=== PATIENT | male | born 1945 | race Caucasian/White ===

== ENCOUNTER → 2017-06-01 13:36 | Outpatient (CLI) | payer OTHER, MEDICARE, SELFPAY ==
--- NOTE | 2017-06-01 13:40 | US_ITS ---
STUDY: THYROID ULTRASOUND REASON FOR EXAM: Male, 72 years old. Thyromegaly TECHNIQUE: Ultrasound evaluation of the thyroid was performed with real-time and static stout-scale imaging. COMPARISON: None. FINDINGS: RIGHT LOBE: The right lobe of the thyroid gland measures 3.3 x 1.3 x 1.6 cm. There is a homogeneous echotexture. There are no demonstrated solid, cystic or complex lesions. LEFT LOBE: The left lobe of the thyroid gland measures 3.7 x 1.4 x 1.5 cm. There is a homogeneous echotexture. There are no demonstrated solid, cystic or complex lesions. ISTHMUS: The isthmus measures 2 mm . The regional lymph nodes are normal. US/Thyroid IMPRESSION: Normal ultrasound examination of the thyroid. Electronically Signed: Asa Augustin MD at 9:44 EDT , Service support ,
== END ==
PROVIDERS: Family Provider Internal Medicine; PCP Internal Medicine; Visit Provider Internal Medicine
DX: E01.0 Iodine-deficiency related diffuse (endemic) goiter (principal)
CPT/HCPCS: 76536

== ENCOUNTER → 2018-07-12 08:12 | Outpatient (CLI) | payer OTHER, MEDICARE, SELFPAY ==
[2018-06-21 09:24] VITALS: BMI 27.5
--- NOTE | 2018-07-12 08:17 | RAD_ITS ---
Fluoroscopic guided esophagram INDICATION: Dysphagia TECHNIQUE: Fluoroscopic guided cine esophagram was performed in usual fashion. FINDINGS: The images submitted for interpretation demonstrating normal peristaltic activity. There appear to be a very small transient hiatal hernia. No obstructing or constricting lesions are seen. There are no mucosal filling defects noted within the esophagus. For more complete information recommend correlation with procedural notes RAD/Esophagus Only IMPRESSION: Small transient hiatal hernia otherwise unremarkable study Electronically Signed: Kwan Mccann MD at 20:52 EDT , Service support ,
== END ==
PROVIDERS: Family Provider Internal Medicine; PCP Internal Medicine; Referring Provider Internal Medicine; Visit Provider Internal Medicine
DX: R13.10 Dysphagia, unspecified (principal)
CPT/HCPCS: 74220

== ENCOUNTER 2018-09-27 05:17 | Day surgery (SDC) | payer OTHER, MEDICARE, SELFPAY ==
[2018-09-08 09:09] VITALS: BMI 26.0
--- NOTE | 2018-09-08 09:50 | HP_ITS ---
Intake Vital Signs 09/08/18 Height 6 ft 09/08/18 Weight: 192 lb 09/08/18 Body Mass Index (BMI) 26.0 09/08/18 Blood Pressure 148/83 H 09/08/18 Blood Pressure Location Rt brachial 09/08/18 Blood Pressure Position Sitting 09/08/18 Respiratory Rate 14 09/08/18 Pulse Rate 71 09/08/18 Pulse Source Monitor 09/08/18 Temperature 98.2 F 09/08/18 Pulse Ox 99 09/08/18 Oxygen Delivery Method room air 09/08/18 Body Mass Index (BMI) 27.5 08/16/18 Body Mass Index (BMI) 27.5 Intake Visit Reasons: Hiatal Hernia Chief Complaint: Follow-up visit. Director Of Academic Support Required: No Is patient in pain?: No Allergies Penicillins Adverse Reaction (Verified 09/08/18 09:10) Rash Medications Aspirin [Aspirin EC] 81 mg PO DAILY 08/21/16 [History Confirmed 09/08/18] Atenolol [Tenormin (beta Ten)] 25 mg PO DAILY 08/21/16 [History Confirmed 09/08/18] Atorvastatin Calcium [Lipitor] 40 mg PO QHS 08/21/16 [History Confirmed 09/08/18] Cholecalciferol (Vitamin D3) [Vitamin D3] 5,000 unit PO DAILY 08/21/16 [History Confirmed 09/08/18] Clopidogrel Bisulfate [Plavix] 75 mg PO DAILY 08/21/16 [History Confirmed 09/08/18] [place]-3 Fatty Acids/Fish Oil [Fish Oil 1,000 mg Capsule] 1 ea PO DAILY 08/21/16 [History Confirmed 09/08/18] Ramipril [Altace] 5 mg PO DAILY 08/21/16 [History Confirmed 09/08/18] levothyroxine 50 mcg capsule 50 mcg PO QDAY cap 06/21/17 [History Confirmed 09/08/18] ciprofloxacin 500 mg tablet 500 mg PO DAILY tab 09/08/18 [History Confirmed 09/08/18] [facility] Medical History (Updated 09/08/18 @ 09:47 by Wilmer Gary MD) Dysphagia (Acute) Atherosclerotic heart disease of [place] coronary artery without angina pectoris (Chronic) Ischemic cardiomyopathy (Chronic) Hypertension (Chronic) Hyperlipidemia (Acute) Surgical History (Updated 09/08/18 @ 09:07 by Alexandra Duarte) Hx of colonoscopy (Acute) History of rectal or anal cancer (Acute) History of herniorrhaphy (Resolved) Presence of stent in coronary artery (Chronic ~01/31/02) Postsurgical percutaneous transluminal coronary angioplasty (PTCA) status (Chronic ~01/31/02) Family History Father CAD (coronary artery disease) Myocardial infarction History of implantable cardioverter-defibrillator (ICD) placement History of permanent cardiac pacemaker placement Mother CAD (coronary artery disease) Brother CAD (coronary artery disease) Myocardial infarction Social History (Updated 09/08/18 @ 09:50 by Wilmer Gary MD) Smoking Status: Never smoker alcohol intake: current details: occasionally substance use type: does not use HPI HPI HPI: ALVAREZ GUTIERREZ, is a 73 M who presents to the office today for HPI HPI Surgical H&P: Yes HPI: ALVAREZ GUTIERREZ, is a 73 M who presents to the office today for surgical consultation regarding esophageal dysphasia. The patient claims that when eating a hamburger sometimes pork chop the food will intermittently hang up. He has never had an upper endoscopy. In 2003 he did have a colon resection for colon cancer performed at the [facility]. His most recent colonoscopy was May 2015 with recommendations for follow-up colonoscopy at 5 years. The patient requests that I assist him with that process. The patient did have a esophagram performed at the [facility] on July 12, 2018. That suggested a transient hiatal hernia and transient reflux. No mass lesions were noted. The patient is not remarkable for taking any acid reducing medications. August 2016 I assisted him with a laparoscopic repair of incarcerated right lower quadrant incisional hernia with extensive lysis of adhesions. The patient had an extensive postoperative recovery however currently he remains quite well. He is appreciative of my efforts in that regard. The patient is being referred by Dr. Vera Moreno for surgical consultation regarding dysphasia and a written copy of my surgical consult recommendations will return to her. Exam Const General: cooperative, healthy appearing, comfortable Nutritional Appearance: average body habitus [facility] Other: The patient is just completing 5-fluorouracil treatment diffusely of actinic keratoses of his face. Diffuse inflammatory erythema is noted Resp Effort & Inspection: normal respiratory effort Auscultation: clear to auscultation bilaterally Cardio Rate: regular rate Rhythm: regular rhythm GI Palpation: soft, no hepatosplenomegaly Auscultation: normal bowel sounds Neuro Cranial Nerves: CN's II-XI intact bilaterally Extrem General: no calf tenderness bilaterally Psych Affect: normal affect Assessment & Plan Problems 1. Esophageal dysphagia R13.10 Plan I have offered the patient a esophagogastroduodenoscopy with possible biopsy. Is aware that if an acute pathology like a Schatzki ring is identified that I would consider hydrostatic dilatation. I have discussed with him technique, benefit, risks, alternatives. He has had an opportunity to ask and have questions answered. Careful inspection for any type of process that would be causing solid food to have delayed progression would be noted. Appropriate biopsies will be pursued. As noted the patient is not currently on reflux medication. We will schedule and proceed at his discretion. I appreciate the ongoing option of assisting with his surgical care. The patient may very well have silent reflux disease. CC: Dr. Vera Gary M.D., F.A.C.S. Orders Orders: EGD Today R13.10 Coding Level of Care Code 40330 Diagnoses Esophageal dysphagia R13.10 ??Dysphagia type: esophageal phase 09/08/18 0950 <Electronically signed by Wilmer alexis MD> Date _ Wilmer Gary MD I have re-examined the patient. There are no clinical changes since date of exam.
[2018-09-27] VITALS (7 sets, daily range): BP systolic 117–173; BP diastolic 47–83; PULSE 69–75; RESP 14–16; TEMP 36.2–36.9; O2SAT 97–100; BMI 27.6
--- NOTE | 2018-09-27 06:30 | IMM_PTH ---
PATIENT: ALVAREZ GUTIERREZ LOC: EN U#:[id number] AGE/SX: 73/M ROOM: RE09/27/[address]: Dr. Wilmer Gary MD : 1945 BED: DIS: 09/27/2018 SPEC #: [id number] RECD: 09/27/18 11:27 STATUS: JOVANI RETrinh #: [id number] RADHA: 09/27/18 06:[address]: Wilmer Gary DEPT: IMMUNOHISTOCHEMISTRY RECD BY: Patti Bennett ENTERED: 09/27/18 11:27 SP TYPE: IMMUNO OTHR DR: Dr. Vera Moreno DO Tissues: A - Stomach, NOS Procedures: H Pylori (initial) PHYSICIAN & INSTITUTION [place] [id number] SPECIMEN INFORMATION: Tissue Source: A - Antrum biopsy Clinical Info: Dysphagia Specimen Number: [id number] CPT code: 27154 METHODOLOGY: Deparaffinized sections of prefer/formalin-fixed tissue or PAP/DQ stained slides are incubated with monoclonal/polyclonal antibodies/oligonucleotide probes. Localization is made via biotin free immunoperoxidase method. Appropriate controls are performed and reacted as expected. Results on target cell population are indicated in the following table: RESULTS: ANTIBODY / CLONE RESULT Block A H Pylori (polyclonal) negative These tests were developed and their performance characteristics determined by [facility]. They may not have been cleared or approved by the U.S. Food and Drug Administration. The FDA has determined that such clearance or approval is not necessary. INTERPRETATION: A. Antrum biopsy: Negative for Helicobacter pylori organisms. DIEGO:joshua 09/28/18
--- NOTE | 2018-09-27 06:30 | EGD_PTH ---
PATIENT: ALVAREZ GUTIERREZ LOC: EN U#:[id number] AGE/SX: 73/M ROOM: RE09/27/[address]: Dr. Wilmer Gary MD : 1945 BED: DIS: 09/27/2018 SPEC #: [id number] RECD: 09/27/18 09:07 STATUS: JOVANI REI #: [id number] RADHA: 09/27/18 06:[address]: Wilmer Gary DEPT: SURGICAL PATHOLOGY RECD BY: Imani Palma ENTERED: 09/27/18 09:52 SP TYPE: EGD BIOPSY OTHR DR: Dr. Vera Moreno DO Tissues: A - Gastric mucous membrane B - Esophagus, NOS Procedures: Special Stain Group II Surgery Specimen Level IV Alcian Blue/PAS (control) HEADER OPERATION: EGD MOD, poss dilation PRE-OP DIAGNOSIS: Dysphagia TISSUE SUBMITTED: A. Antrum biopsy for histo and H. pylori, BDarlene Robertson ring biopsy MICROSCOPIC DIAGNOSIS A. Antrum biopsy: Mild gastritis. See microscopic description and comment. Colten torres, biopsy: Fragments of gastroesophageal mucosa with mild chronic inflammation. Intestinal metaplasia (goblet cell metaplasia) is not identified. See comment. SJ:rg 09/28/18 COMMENT A. The results of immunohistochemistry for Helicobacter pylori will be reported separately ([id number]). B. Alcian blue/PAS stain with matched control is used in the evaluation of the specimen. The specimen predominantly consists of squamous epithelium. MICROSCOPIC DESCRIPTION Slides are reviewed. A. The specimen shows fragments of gastric mucosa with chronic inflammatory cell infiltrates in the lamina propria consisting of lymphocytes and plasma cells, consistent with mild chronic gastritis. GROSS DESCRIPTION A - Received in fixative is one container labeled with the patient's name and designated antrum biopsy. The specimen consists of one irregular fragment of light landrum soft tissue that measures 0.4 x 0.3 x 0.1 cm. The specimen is totally submitted in one cassette. B - Received in fixative is one container labeled with the patient's name and designated Bricetzki ring biopsy. The specimen consists of multiple irregular fragments of light landrum soft tissue that in aggregate measure 0.5 x 0.5 x 0.1 cm. The specimen is totally submitted in one cassette. / DIEGO:joshua 09/27/18 TC: CPT: 17327 x2, 05337
--- NOTE | 2018-09-27 06:58 | OP.ENDO_ITS ---
09/27/2018 Vera Moreno Re : Upper GI endoscopy procedure for Raul Moreno This procedure was performed on Thursday, September 27, 2018. My impressions and recommendations are as follows: Impressions : - Z-line irregular, 38 cm from the incisors. Biopsied. - Medium-sized hiatal hernia. - Benign-appearing esophageal stenosis. Dilated. - Erythematous mucosa in the antrum. Biopsied. - Normal examined duodenum. Recommendations : - Discharge patient to home. - Resume previous diet. - Continue present medications. - Use Prilosec (omeprazole) 40 mg PO daily. Plan omeprazole for 60 days then change to ranitidine or famotidine - Telephone my office for pathology results in 1 week. My findings are described in the full procedure note, which is enclosed. If I can be of further assistance, please feel free to contact me at Doctor phone number(s): Work: . Sincerely, Wilmer Gary MD 09/27/2018 6:58:22 AM This report has been signed electronically.
== END 2018-09-27 08:12 | disposition home or self-care (01) ==
LOC: EN 05:17 → AC 05:18
PROVIDERS: Family Provider Internal Medicine; PCP Internal Medicine; Referring Provider Surgery; Visit Provider Surgery
PROC: (CPT 43239; principal; 2018-09-27 06:25)
DX: K29.70 Gastritis, unspecified, without bleeding (principal); K22.2 Esophageal obstruction; K44.9 Diaphragmatic hernia without obstruction or gangrene; I25.10 Atherosclerotic heart disease of native coronary artery without angina pectoris; I10 Essential (primary) hypertension; E78.5 Hyperlipidemia, unspecified; I25.5 Ischemic cardiomyopathy; Z79.82 Long term (current) use of aspirin; Z79.899 Other long term (current) drug therapy
CPT/HCPCS: 43239; 43249; 88305; 88313; 88342; 99152; 99153; J7120

== ENCOUNTER → 2019-10-11 10:30 | Outpatient (CLI) | payer OTHER, MEDICARE, SELFPAY ==
[2019-06-19 13:02] VITALS: BMI 27.5
--- NOTE | 2019-10-11 10:35 | MRI_ITS ---
STUDY: MRI BRAIN WITH AND WITHOUT CONTRAST REASON FOR EXAM: Male, 74 years old. CONFUSION, memory loss TECHNIQUE: Standardized multiplanar fat and water weighted pulse sequences were obtained. 18 mL of IV Dotarem was administered for the contrast portion of the examination. COMPARISON: None. FINDINGS: No restricted diffusion to suspect acute or subacute ischemic infarct. No focal signal abnormalities throughout the brain parenchyma in all pulse sequences. Normal size of the ventricles and extra-axial spaces for the patient''s age. Normal white matter tracts of the supratentorial brain. Normal bilateral basal ganglia. Normal thalami. There is no extra-axial fluid accumulation. Normal flow voids within the major intracranial circulation suggesting patency by spin echo criteria. Normal venous enhancement. There is no enhancing intra-axial or extra-axial abnormality. Normal sella turcica, pituitary gland, infundibular stalk, optic chiasm and hypothalamus. Normal tectal plate and pineal gland. Normal midbrain, marquis and medulla. Normal cerebellum. Normal basal cisterns. Normal bilateral temporal bones. Normal bilateral internal auditory canals. No demonstrated orbital abnormality, within the constraints of a routine brain study. Normal visualized paranasal sinuses. Normal calvarium and skull base. Normal visualized soft tissue structures. Normal visualized upper cervical spine. MRI/Brain W/WO Contrast IMPRESSION: Normal unenhanced and enhanced MRI of the brain. Electronically Signed: Thiago Bardales MD at 14:08 EDT , Service support ,
[2019-10-11 12:26] LABS: CREATININE FINGERSTICK 0.9 mg/dL (0.70-1.30); EGFR FINGERSTICK > 60.0000 mL/min (>60)
== END ==
PROVIDERS: PCP Internal Medicine; Referring Provider Internal Medicine; Visit Provider Internal Medicine
DX: R41.0 Disorientation, unspecified (principal)
CPT/HCPCS: 70553; A9575

== ENCOUNTER → 2020-02-02 12:40 | Outpatient (CLI) | payer OTHER, MEDICARE, SELFPAY ==
[2020-01-23 11:37] VITALS: BMI 28.0
--- NOTE | 2020-02-02 12:47 | ECHOD_ITS ---
Reason For Study: CAD/ASHD Procedure This was a 2D Doppler, Color Flow transthoracic echocardiogram. Exam performed in department. Left Ventricle Normal LV size. Left ventricular systolic function is normal. The estimated ejection fraction is 55 %. Stage 1 diastolic dysfunction. No regional wall motion abnormalities noted. Right Ventricle Normal RV size. Normal systolic function. Atria Normal left atrium. Normal right atrium. Mitral Valve Normal mitral valve. Mild (1+) eccentric mitral valve insufficiency. Tricuspid Valve Normal tricuspid valve. Mild (1+) tricuspid valve insufficiency. Pulmonary artery systolic pressure is 28 mmHg. Aortic Valve Trisinus/trileaflet aortic valve. Trivial aortic valve insufficiency. Pulmonic Valve Normal pulmonic valve. Great Vessels Normal aortic root. The pulmonary artery is normal size. Normal inferior vena cava. Pericardium/Pleural No pericardial effusion. MMode/2D Measurements & Calculations LVIDd: 5.1 cm IVSd: 0.87 cm Ao root diam: 3.2 cm LVIDs: 3.6 cm LVPWd: 0.94 cm RVDd: 3.5 cm FS: 28.7 % LAV(MOD-bp): 60.1 ml LVAd ap4: 36.5 cm2 SV(MOD-sp4): 69.1 ml LAV(MOD-bp) Indexed: 27.8 ml/m2 EDV(MOD-sp4): 127.6 ml LAV(MOD-sp2): 63.8 ml EDV(sp4-el): 127.5 ml LAV(MOD-sp4): 47.8 ml LVAs ap4: 22.8 cm2 ESV(MOD-sp4): 58.6 ml ESV(sp4-el): 58.7 ml EF(MOD-sp4): 54.1 % EF(sp4-el): 53.9 % SV(sp4-el): 68.7 ml LA A4 area: 19.0 cm2 LA dimension(2D): 4.6 cm RA A4 area: 19.0 cm2 Time Measurements MV dec time: 0.25 sec Doppler Measurements & Calculations MV E max davidson: 73.8 cm/sec Lat Peak E' Davidson: 11.2 cm/sec Med Peak E' Davidson: 7.3 cm/sec MV A max davidson: 85.9 cm/sec E/E' lat: 6.6 E/E' med: 10.1 MV E/A: 0.86 Ao V2 max: 122.9 cm/sec AI max davidson: 379.8 cm/sec LV V1 max: 82.2 cm/sec Ao max P.0 mmHg AI max P.7 mmHg LV V1 max P.7 mmHg AI dec slope: 162.4 cm/sec2 AI P1/2t: 685.2 msec PA V2 max: 119.6 cm/sec PI end-d davidson: 73.7 cm/sec TR max davidson: 242.2 cm/sec TR max P.5 mmHg Interpretation Summary Normal LV size. Left ventricular systolic function is normal. The estimated ejection fraction is 55 %. Stage 1 diastolic dysfunction. Pulmonary artery systolic pressure is 28 mmHg. Ordering Physician: Wilfred Coronel Referring Physician: KRYSTA TYLER Performed By: Deborah Rogel RDCS
== END ==
PROVIDERS: PCP Internal Medicine; Referring Provider Internal Medicine Cardiovascular Disease; Visit Provider Internal Medicine Cardiovascular Disease
DX: I25.10 Atherosclerotic heart disease of native coronary artery without angina pectoris (principal); I25.5 Ischemic cardiomyopathy; Z95.5 Presence of coronary angioplasty implant and graft
CPT/HCPCS: 93306

== ENCOUNTER 2020-06-11 07:04 | Day surgery (SDC) | payer OTHER, MEDICARE, SELFPAY ==
[2020-05-31 09:27] VITALS: BMI 28.3
--- NOTE | 2020-06-11 07:22 | HP.PCM_ITS ---
Problem List (1) Esophageal dysphagia Status: Acute (2) History of rectal or anal cancer Status: Chronic History and Physical Date of Admission: 06/11/20 Intake Visit Reasons: C-Scope Chief Complaint: Follow-up visit. Allergies atorvastatin Adverse Reaction (Verified 05/31/20 09:28) myalgias Penicillins Adverse Reaction (Verified 05/31/20 09:28) Rash Medications Aspirin [Aspirin EC] 81 mg PO DAILY 08/21/16 [History Confirmed 05/31/20] Atenolol [Tenormin (beta [place])] 25 mg PO DAILY 08/21/16 [History Confirmed 05/31/20] Clopidogrel Bisulfate [Plavix] 75 mg PO DAILY 08/21/16 [History Confirmed 05/31/20] [place]-3 Fatty Acids/Fish Oil [Fish Oil 1,000 mg Capsule] 1 ea PO DAILY 08/21/16 [History Confirmed 05/31/20] Ramipril [Altace] 5 mg PO DAILY 08/21/16 [History Confirmed 05/31/20] levothyroxine 50 mcg capsule 50 mcg PO QDAY cap 06/21/17 [History Confirmed 05/31/20] cholecalciferol (vitamin D3) 125 mcg (5,000 unit) capsule 5,000 unit PO .QOD cap 06/19/19 [History Confirmed 05/31/20] daily defense TOPICAL 06/19/19 [History Confirmed 05/31/20] folic acid 0.8 mg capsule 0.8 mg PO DAILY 01/23/20 [History Confirmed 05/31/20] omeprazole 40 mg capsule,delayed release 40 mg PO DAILY cap 01/23/20 [History Confirmed 05/31/20] rosuvastatin 5 mg tablet 5 mg PO DAILY tab 01/23/20 [History Confirmed 05/31/20] [facility] Medical History (Updated 05/31/20 @ 09:[address] Wilmer Gary MD) Esophageal dysphagia (Acute) Acid reflux (Chronic) Thyroid disease (Acute) Dysphagia (Inactive) Atherosclerotic heart disease of [place] coronary artery without angina pectoris (Chronic) Ischemic cardiomyopathy (Chronic) Essential (primary) hypertension (Chronic) Hyperlipidemia (Chronic) History of rectal cancer (Resolved) Surgical History (Updated 05/31/20 @ 09:35 by Alexandra Duarte) History of esophageal dilatation (Acute) History of esophagogastroduodenoscopy (EGD) (Acute) Hx of ventral hernia repair (Acute) History of herniorrhaphy (Resolved) Hx of colonoscopy (Resolved) History of colon resection (Resolved) History of coronary artery stent placement (Resolved 01/21/02) History of rectal or anal cancer (Chronic) Family History Father CAD (coronary artery disease) Myocardial infarction History of implantable cardioverter-defibrillator (ICD) placement History of permanent cardiac pacemaker placement Mother CAD (coronary artery disease) Brother CAD (coronary artery disease) Myocardial infarction Cancer Social History (Updated 05/31/20 @ 09:[address] Wilmer Gary MD) Smoking Status: Never smoker alcohol intake: current alcohol intake frequency: holidays/special occasions only details: occasionally substance use type: does not use caffeine: Yes what type of physical activity do you participate in: walking frequency: 3-4 times per week HPI HPI HPI: ALVAREZ GUTIERREZ, is a 75 M who presents to the office today for surgical consultation regarding 2 separate issues. He is having recurrent esophageal dysphagia. Solid foods particularly red meat gives him significant problems where it is difficult to swallow. As noted below September 27 had an upper endoscopy form demonstrating a medium size hiatal hernia with a Schatzki ring. I did a oxvltxm-[id number] balloon dilatation to 20 mm. He states that he was significantly improved subsequent to that. The patient also has had a history of rectal cancer. He remotely at a tertiary center had a low anterior resection with diverting ileostomy and takedown of the ileostomy. His most recent colonoscopy was May 26. He has no specific lower GI complaints. He claims that his stool has always been softer. He denies bright red blood per rectum or melena. No abdominal pain. Finally as noted below August 2016 I assisted him with a right lower quadrant incarcerated ventral incisional hernia related to his previous ileostomy site. He has no particular complaints about that currently. Upper scope of September 27 2018 Impressions : - Z-line irregular, 38 cm from the incisors. Biopsied. - Medium-sized hiatal hernia. - Benign-appearing esophageal stenosis. Dilated. - Erythematous mucosa in the antrum. Biopsied. - Normal examined duodenum August 24, 2016 PROCEDURES: Right lower quadrant incarcerated ventral incisional herniorrhaphy with extensive 1-hour lysis of adhesions and laparoscopic mesh fixation. Past surgical history includes the low anterior resection for proximal rectal cancer, loop diverting ileostomy with subsequent takedown ileostomy. His most recent colonoscopy was May 27, 2015, per Dr. Cardenas and it was not remarkable. The patient is referred by his primary care physician Dr. Vera Moreno and a written copy my surgical consult recommendations will be returned to her HPI HPI HPI: ALVAREZ GUTIERREZ, is a 75 M who presents to the office today for Exam Const General: cooperative, healthy appearing, comfortable, no acute distress Orientation: alert, awake HENIN Head: normal to inspection Eyes General: appearance normal, both eyes and all related structures Chest Chest palpation & inspection: normal inspection of the chest Resp Effort & Inspection: normal respiratory effort Auscultation: clear to auscultation bilaterally Cardio Rate: regular rate Rhythm: regular rhythm GI Palpation: soft, no hepatosplenomegaly Auscultation: normal bowel sounds Musc Cervical Spine: normal cervical lordosis Neuro Cognition: normal cognition Extrem General: no calf tenderness Psych Affect: normal affect Assessment & Plan Problems 1. Esophageal dysphagia R13.10 2. History of rectal or anal cancer Z85.048 Plan 75-year-old gentleman. His recurrent esophageal dysphagia symptoms. Red meat particular gives him trouble. I recommend to him a esophagogastroduodenoscopy with intended esophageal dilatation if a recurrent Schatzki ring is identified. Previously he was dilated to 20 mm. The patient also has a remote history of rectal cancer. His most recent colonoscopy as noted was May 2015. Fortunately he is currently asymptomatic. We will have him hold his fish oil for 1 week. Hold his aspirin for 1 week. Hold his clopidogrel for 5 days. He has had a history of coronary stenting in 2001. He has not had any current symptoms. Because of the anticipated esophageal dilatation I would like to have his Plavix held. He has had an opportunity to ask and have questions answered. I appreciate the ongoing opportunity of assisting with his surgical care. We will schedule and proceed as noted. Copy: Dr. Vera Gary M.D., F.A.C.S. Coding Level of Care Code 63015 Diagnoses Esophageal dysphagia R13.10 History of rectal or anal cancer Z85.048 I have re-examined the patient. There are no clinical changes since date of exam. Procedure Criteria Procedure Type: Elective COVID Risk Discussion: The surgeon/proceduralist and patient have discussed in detail the risk of exposure to and/or potential harm posed by the COVID-19 virus with having a surgery/procedure at this time versus the risk of delaying the surge ry/procedure. It is not possible to know either the risk of delaying the surgery or procedure or chance of getting an infection with perfect accuracy, but a joint decision was made between the patient and the surgeon/proceduralist to proceed at this time with the scheduled surgery/procedure as indicated on the consent form.
[2020-06-11 07:30] VITALS: BP 139/75; PULSE 75; RESP 16; TEMP 36.9; O2SAT 100
[2020-06-11] MEDS: Lactated Ringers 1,000 ML 100 ML IV (07:43)
--- NOTE | 2020-06-11 08:15 | EGD_PTH ---
PATIENT: ALVAREZ GUTIERREZ LOC: EN U#:[id number] AGE/SX: 75/M ROOM: RE06/11/[address]: Dr. Wilmer Gary MD : 1945 BED: DIS: 06/11/2020 SPEC #: [id number] RECD: 06/11/20 11:20 STATUS: JOVANI REI #: [id number] RADHA: 06/11/20 08:[address]: Wilmer Gary DEPT: SURGICAL PATHOLOGY RECD BY: Sabine Hoskins ENTERED: 06/11/20 12:24 SP TYPE: EGD BIOPSY OTHR DR: Dr. Vera Moreno DO Tissues: A - Duodenum, NOS B - Gastric mucous membrane C - Gastric mucous membrane D - Ascending colon E - Transverse colon Procedures: Special Stain Group II Surgery Specimen Level IV Alcian Blue/PAS (control) HEADER OPERATION: Colonoscopy/EGD with dilatation PRE-OP DIAGNOSIS: Esophageal dysphagia, history of rectal or anal cancer TISSUE SUBMITTED: A - Duodenal biopsy, B - Antral biopsy, H. pylori and path, C - GE junction biopsy, D - Ascending colon polyp, E - Proximal transverse colon polyp MICROSCOPIC DIAGNOSIS A. Duodenal biopsy: A fragment of duodenal mucosa with mild nonspecific chronic inflammation. B. Antral biopsy: Mild gastritis. See microscopic description and comment. C. GE junction, biopsy: Fragments of gastroesophageal mucosa with mild chronic inflammation. Intestinal metaplasia (goblet cell metaplasia) not identified. See comment. D. Ascending colon polyp, biopsy: Tubular adenoma. E. Proximal transverse colon polyp, biopsy: Scant minute fragments of colonic epithelium and fragments of fecal material, no pathologic diagnosis. SJ:joshua 06/12/2020 COMMENT B. The results of immunohistochemistry for Helicobacter pylori will be reported separately ([id number]). C. Alcian blue/PAS stain with matched control is used in the evaluation of the specimen. MICROSCOPIC DESCRIPTION Slides are reviewed. A. The specimen shows fragments of gastric mucosa with chronic inflammatory cell infiltrates in the lamina propria consisting of lymphocytes and plasma cells, consistent with mild chronic gastritis. GROSS DESCRIPTION A - Received in fixative is one container labeled with the patient's name and designated duodenal biopsy. The specimen consists of one irregular fragment of light landrum soft tissue that measures 0.5 x 0.2 x 0.1 cm. The specimen is totally submitted in one cassette. B - Received in fixative is one container labeled with the patient's name and designated antral biopsy. The specimen consists of one irregular fragment of light landrum soft tissue that measures 0.7 x 0.3 x 0.1 cm. The specimen is totally submitted in one cassette. C - Received in fixative is one container labeled with the patient's name and designated GE junction biopsy. The specimen consists of two irregular fragments of light landrum soft tissue that in aggregate measure 0.4 x 0.3 x 0.1 cm. The specimen is totally submitted in one cassette. D - Received in fixative is one container labeled with the patient's name and designated ascending colon polyp. The specimen consists of one irregular fragment of light landrum soft tissue that measures 0.3 x 0.3 x 0.1 cm. The specimen is totally submitted in one cassette. E - Received in fixative is one container labeled with the patient's name and designated proximal transverse colon polyp. The specimen consists of a minute fragment of landrum soft tissue measuring 0.1 cm in greatest dimension. The specimen is totally submitted in one cassette. / SJ:joshua 06/11/20 TC:1 CPT: 80960 x5, 06490
--- NOTE | 2020-06-11 08:15 | IMM_PTH ---
PATIENT: ALVAREZ GUTIERREZ LOC: EN U#:[id number] AGE/SX: 75/M ROOM: RE06/11/[address]: Dr. Wilmer Gary MD : 1945 BED: DIS: 06/11/2020 SPEC #: [id number] RECD: 06/11/20 12:01 STATUS: JOVANI REQ #: [id number] RADHA: 06/11/20 08:[address]: Wilmer Gary DEPT: IMMUNOHISTOCHEMISTRY RECD BY: Patti Bennett ENTERED: 06/11/20 12:02 SP TYPE: IMMUNO OTHR DR: Dr. Vera Moreno DO Tissues: B - Stomach, NOS Procedures: H Pylori (initial) PHYSICIAN & INSTITUTION [place] [id number] SPECIMEN INFORMATION: Tissue Source: B - Antral biopsy Clinical Info: Esophageal dysphagia, history of rectal or anal cancer Specimen Number: [id number] CPT code: 07697 METHODOLOGY: Deparaffinized sections of prefer/formalin-fixed tissue or PAP/DQ stained slides are incubated with monoclonal/polyclonal antibodies/oligonucleotide probes. Localization is made via biotin free immunoperoxidase method. Appropriate controls are performed and reacted as expected. Results on target cell population are indicated in the following table: RESULTS: ANTIBODY / CLONE RESULT Block B H Pylori (polyclonal) negative These tests were developed and their performance characteristics determined by [facility]. They may not have been cleared or approved by the U.S. Food and Drug Administration. The FDA has determined that such clearance or approval is not necessary. INTERPRETATION: B. Antral biopsy: Negative for Helicobacter pylori organisms. SJ:joshua 06/12/2020
[2020-06-11 09:55] VITALS: BP 106/64; BP 139/75; PULSE 82; RESP 16; TEMP 36.2; O2SAT 98
--- NOTE | 2020-06-11 09:56 | OP.CCLET_ITS ---
06/11/2020 Vera Moreno Re : Upper GI endoscopy procedure for Raul Moreno This procedure was performed on Thursday, June 11, 2020. My impressions and recommendations are as follows: Impressions : - LA Grade A reflux esophagitis. Biopsied. - Medium-sized hiatal hernia. - Moderate Schatzki ring. Dilated. - Erythematous mucosa in the antrum. Biopsied. - Erythematous duodenopathy. Biopsied. Recommendations : - Discharge patient to home. - Resume previous diet. - Continue present medications. - Telephone my office for pathology results in 1 week. My findings are described in the full procedure note, which is enclosed. If I can be of further assistance, please feel free to contact me at Doctor phone number(s): Work: . Sincerely, Wilmer Gary MD 06/11/2020 9:56:06 AM This report has been signed electronically.
--- NOTE | 2020-06-11 09:56 | OP.EGD_ITS ---
Patient Name: Raul Tran Procedure Date: 06/11/2020 9:05 AM Date of : 1945 Age: 75 Procedure: Upper GI endoscopy Indications: Dysphagia Providers: Wilmer Gary MD Referring MD: Vera Moreno Medicines: See the Anesthesia note for documentation of the administered medications Complications: No immediate complications. Procedure: Pre-Anesthesia Assessment: - Prior to the procedure, a History and Physical was performed, and patient medications and allergies were reviewed. The patient's tolerance of previous anesthesia was also reviewed. The risks and benefits of the procedure and the sedation options and risks were discussed with the patient. All questions were answered, and informed consent was obtained. Prior Anticoagulants: The patient has taken no previous anticoagulant or antiplatelet agents. ASA Grade Assessment: II - A patient with mild systemic disease. After reviewing the risks and benefits, the patient was deemed in satisfactory condition to undergo the procedure. After obtaining informed consent, the endoscope was passed under direct vision. Throughout the procedure, the patient's blood pressure, pulse, and oxygen saturations were monitored continuously. The gastroscope was introduced through the mouth, and advanced to the second part of duodenum. The upper GI endoscopy was accomplished without difficulty. The patient tolerated the procedure well. Scope In: 9:15:19 AM Scope Out: 9:29:58 AM Total Procedure Duration Time 0 hours 14 minutes 39 seconds Findings: LA Grade A (one or more mucosal breaks less than 5 mm, not extending between tops of 2 mucosal folds) esophagitis with no bleeding was found 41 cm from the incisors. Biopsies were taken with a cold forceps for histology. A medium-sized hiatal hernia was present. A moderate Schatzki ring was found at the gastroesophageal junction. A TTS dilator was passed through the scope. Dilation with an 18-19-20 mm balloon dilator was performed to 20 mm. The dilation site was examined and showed mild improvement in luminal narrowing. Estimated blood loss was minimal. Diffuse mildly erythematous mucosa without bleeding was found in the gastric antrum. Biopsies were taken with a cold forceps for histology. Diffuse mildly erythematous mucosa without active bleeding and with no stigmata of bleeding was found in the duodenal bulb. Biopsies were taken with a cold forceps for histology. Impression: - LA Grade A reflux esophagitis. Biopsied. - Medium-sized hiatal hernia. - Moderate Schatzki ring. Dilated. - Erythematous mucosa in the antrum. Biopsied. - Erythematous duodenopathy. Biopsied. Recommendation: - Discharge patient to home. - Resume previous diet. - Continue present medications. - Telephone my office for pathology results in 1 week. Procedure Code(s): --- Professional --- 24856, Esophagogastroduodenoscopy, flexible, transoral; with transendoscopic balloon dilation of esophagus (less than 30 mm diameter) Diagnosis Code(s): --- Professional --- K21.0, Gastro-esophageal reflux disease with esophagitis K44.9, Diaphragmatic hernia without obstruction or gangrene K22.2, Esophageal obstruction K31.89, Other diseases of stomach and duodenum R13.10, Dysphagia, unspecified CPT copyright 2017 [employer]. All rights reserved. The codes documented in this report are preliminary and upon reservation manager review may be revised to meet current compliance requirements. Wilmer Gary MD 06/11/2020 9:56:06 AM This report has been signed electronically. Number of Addenda: 0 Note Initiated On: 06/11/2020 9:05 AM
[2020-06-11 10:00] VITALS: BP 113/61; BP 139/75; PULSE 82; RESP 16; O2SAT 98
--- NOTE | 2020-06-11 10:00 | OP.CCLET_ITS ---
06/11/2020 Vera Moreno Re : Colonoscopy procedure for Raul Moreno This procedure was performed on Thursday, June 11, 2020. My impressions and recommendations are as follows: Impressions : - Preparation of the colon was fair. - Hemorrhoids found on perianal exam. - One 4 mm polyp in the proximal ascending colon, removed with a cold biopsy forceps. Resected and retrieved. - One 6 mm polyp in the proximal transverse colon, removed with a cold snare. Resected and retrieved. - Diverticulosis in the sigmoid colon and in the descending colon. - Patent end-to-end colo-colonic anastomosis, characterized by healthy appearing mucosa. Recommendations : - Discharge patient to home. - Resume previous diet. - Continue present medications. - Repeat colonoscopy in 5 years for surveillance based on pathology results. - Telephone my office for pathology results in 1 week. My findings are described in the full procedure note, which is enclosed. If I can be of further assistance, please feel free to contact me at Doctor phone number(s): Work: . Sincerely, Wilmer Gary MD 06/11/2020 9:59:50 AM This report has been signed electronically.
--- NOTE | 2020-06-11 10:00 | OP.COLON_ITS ---
Patient Name: Raul Tran Procedure Date: 06/11/2020 9:30 AM Date of : 1945 Age: 75 Procedure: Colonoscopy Indications: High risk colon cancer surveillance: Personal history of colon cancer Providers: Wilmer Gary MD Referring MD: Vera Moreno Medicines: See the Anesthesia note for documentation of the administered medications Patient Profile: Last Colonoscopy: May 2015. Complications: No immediate complications. Procedure: Pre-Anesthesia Assessment: - Prior to the procedure, a History and Physical was performed, and patient medications and allergies were reviewed. The patient's tolerance of previous anesthesia was also reviewed. The risks and benefits of the procedure and the sedation options and risks were discussed with the patient. All questions were answered, and informed consent was obtained. Prior Anticoagulants: The patient has taken no previous anticoagulant or antiplatelet agents. ASA Grade Assessment: II - A patient with mild systemic disease. After reviewing the risks and benefits, the patient was deemed in satisfactory condition to undergo the procedure. After I obtained informed consent, the scope was passed under direct vision. Throughout the procedure, the patient's blood pressure, pulse, and oxygen saturations were monitored continuously. The colonoscope was introduced through the anus and advanced to the cecum, identified by appendiceal orifice and ileocecal valve. The colonoscopy was performed without difficulty. The patient tolerated the procedure well. The quality of the bowel preparation was fair. Scope In: 9:32:15 AM Scope Withdrawal Time 0 hours 13 minutes 16 seconds Scope Out: 9:49:55 AM Total Procedure Duration Time 0 hours 17 minutes 40 seconds Findings: Hemorrhoids were found on perianal exam. A 4 mm polyp was found in the proximal ascending colon. The polyp was sessile. The polyp was removed with a cold biopsy forceps. Resection and retrieval were complete. A 6 mm polyp was found in the proximal transverse colon. The polyp was sessile. The polyp was removed with a cold snare. Resection and retrieval were complete. Multiple diverticula were found in the sigmoid colon and descending colon. There was evidence of a prior end-to-end colo-colonic anastomosis in the mid rectum. This was patent and was characterized by healthy appearing mucosa. Impression: - Preparation of the colon was fair. - Hemorrhoids found on perianal exam. - One 4 mm polyp in the proximal ascending colon, removed with a cold biopsy forceps. Resected and retrieved. - One 6 mm polyp in the proximal transverse colon, removed with a cold snare. Resected and retrieved. - Diverticulosis in the sigmoid colon and in the descending colon. - Patent end-to-end colo-colonic anastomosis, characterized by healthy appearing mucosa. Recommendation: - Discharge patient to home. - Resume previous diet. - Continue present medications. - Repeat colonoscopy in 5 years for surveillance based on pathology results. - Telephone my office for pathology results in 1 week. Procedure Code(s): --- Professional --- 45131, Colonoscopy, flexible; with removal of tumor(s), polyp(s), or other lesion(s) by snare technique 49239, 59, Colonoscopy, flexible; with biopsy, single or multiple Diagnosis Code(s): --- Professional --- Z85.038, Personal history of other malignant neoplasm of large intestine K64.9, Unspecified hemorrhoids D12.2, Benign neoplasm of ascending colon D12.3, Benign neoplasm of transverse colon (hepatic flexure or splenic flexure) Z98.0, Intestinal bypass and anastomosis status K57.30, Diverticulosis of large intestine without perforation or abscess without bleeding CPT copyright 2017 [employer]. All rights reserved. The codes documented in this report are preliminary and upon healthcare recruiter review may be revised to meet current compliance requirements. Wilmer Gary MD 06/11/2020 9:59:50 AM This report has been signed electronically. Number of Addenda: 0 Note Initiated On: 06/11/2020 9:30 AM
[2020-06-11 10:05] VITALS: BP 113/68; BP 139/75; PULSE 81; RESP 16; O2SAT 99
[2020-06-11 10:10] VITALS: BP 116/70; BP 139/75; PULSE 78; RESP 16; TEMP 36.3; O2SAT 100
[2020-06-11 10:51] VITALS: BP 139/75
== END 2020-06-11 10:53 | disposition home or self-care (01) ==
LOC: EN 07:06 → AC 07:07
PROVIDERS: PCP Internal Medicine; Referring Provider Internal Medicine; Visit Provider Surgery
PROC: 0DJD8ZZ Inspection of Lower Intestinal Tract, Via Natural or Artificial Opening Endoscopic (ICD-10-PCS; CPT 45378; principal; 2020-06-11 08:10)
DX: K21.00 Gastro-esophageal reflux disease with esophagitis, without bleeding (principal); K29.50 Unspecified chronic gastritis without bleeding; K44.9 Diaphragmatic hernia without obstruction or gangrene; K31.89 Other diseases of stomach and duodenum; R13.10 Dysphagia, unspecified; K22.2 Esophageal obstruction; K64.9 Unspecified hemorrhoids; Z98.0 Intestinal bypass and anastomosis status; K57.30 Diverticulosis of large intestine without perforation or abscess without bleeding; I25.10 Atherosclerotic heart disease of native coronary artery without angina pectoris; I25.5 Ischemic cardiomyopathy; E78.5 Hyperlipidemia, unspecified; I10 Essential (primary) hypertension; Z85.038 Personal history of other malignant neoplasm of large intestine; Z85.048 Personal history of other malignant neoplasm of rectum, rectosigmoid junction, and anus; Z79.02 Long term (current) use of antithrombotics/antiplatelets; Z95.5 Presence of coronary angioplasty implant and graft
CPT/HCPCS: 43249; 45385; 87426; 88305; 88313; 88342; C9803; J7120; J2405

== ENCOUNTER → 2022-04-30 | Outpatient (CLI) | payer MEDICARE, OTHER, SELFPAY ==
[2022-04-24 12:50] LABS: Absolute Lymphocyte Count 1.84 X10^3/uL (0.83-4.51); Absolute Neutrophil Count 5.7 X10^3/uL (2.0-7.7); Basophil# 0.03 X10^3/uL; Basophil% 0.3 % (0-1); Eosinophil# 0.12 X10^3/uL; Eosinophils% 1.4 % (0-5); Hematocrit 38.4 % (40-54); Lymphocyte # 1.84 X10^3/ul (0.83-4.51); Lymphocyte % 21.1 % (19-41); Mean Corp Hgb Conc 33.9 g/dL (32-36); Mean Corpuscular Hgb 33.1 pg (27.0-32.0); Mean Corpuscular Volume 97.7 fL (80-94); Mean Platelet Vol. 10.2 fl (6.2-12.0); Monocyte# 1.05 X10^3/uL; NRBC Flagged by Analyzer 0 % (0-5); Neutrophil # 5.66 X10^3/uL (2.7-7.7); Neutrophil % 64.9 % (47-70); Platelet Count 280 K/mm3 (150-450); RBC Distribution Width CV 12.2 % (11.6-14.6); RBC Distribution Width SD 43.9 fl (35.1-43.9); Red Blood Count 3.93 M/mm3 (4.6-6.2); White Blood Count 8.7 K/mm3 (4.4-11.0)
[2022-04-24 13:38] LABS: ALB/GLOB Ratio 1.3 RATIO (0.9-2.4); AST(SGOT) 21 U/L (15-37); Alanine Aminotransfer ALT/SGPT 28 U/L (16-61); Alkaline Phosphatase 50 U/L (45-117); Anion Gap 6 (5-15); BUN 14 mg/dL (7-18); Calcium,Total 9.6 mg/dL (8.5-10.1); Chloride 105 mmol/L (98-107); EST Glomerular Filtration Rate 52 mL/min (>60); Est Glom Filt Rate - Afr Amer 63 mL/min (>60); Globulin 3.1 g/dL (2.2-4.2); Glucose 99 mg/dL (74-106); Potassium 4.4 mmol/L (3.5-5.1); Protein, Total 7.1 g/dL (6.4-8.2); Sodium Level 141 mmol/L (136-145)
--- NOTE | 2022-04-30 13:26 | CT_ITS ---
EXAM: CT ABDOMEN AND PELVIS WITH INTRAVENOUS CONTRAST CLINICAL INDICATION: pt having LLQ pain, hx of colon cancer -- oral and iv - he has what sounds like partial bowel obstruction a TECHNIQUE: Helically acquired images were obtained of the abdomen and pelvis with intravenous contrast. This CT exam was performed using one or more of the following dose reduction techniques: automated exposure control, adjustment of the mA and/or kV according to patient size, and/or use of iterative reconstruction technique. This report was created using xTV report generation technology. CONTRAST: Oral and amp; IV Readi-CAT and amp; 100mL Isovue-300 COMPARISON: 08/21/2016 FINDINGS: LOWER THORAX: There is a [id number]-[id number] hiatal hernia present. This is in size from the reference exam. Lung bases are clear. No cardiomegaly. No significant pericardial effusion. ABDOMEN: LIVER: There are multiple low-density lesions in the liver compatible with cysts which are stable from the exam. GALLBLADDER AND BILE DUCTS: Unremarkable. No calcified gallstones. No gallbladder distention or wall edema. No intra- or extrahepatic biliary ductal dilation. PANCREAS: Unremarkable. No focal cystic or solid mass. SPLEEN: Unremarkable. Normal size without focal cystic or solid mass. ADRENALS: Unremarkable. No nodules. KIDNEYS AND URETERS: There is a low-density lesion in the right kidney compatible with a simple cyst. No follow-up in this area. No hydronephrosis. STOMACH AND BOWEL: There is a moderate amount stool seen in the distal sigmoid colon. No stomach or bowel distention. No focal inflammatory change. PELVIS: APPENDIX: No evidence of acute appendicitis. BLADDER: Unremarkable. REPRODUCTIVE: Unremarkable as visualized. No mass. ABDOMEN and PELVIS: INTRAPERITONEAL SPACE: Unremarkable. No ascites or other fluid collection. No free air. BONES/JOINTS: Unremarkable. No suspicious lytic or blastic abnormality. SOFT TISSUES: Unremarkable. No discrete abdominal or pelvic wall hernia. VASCULATURE: Unremarkable. Abdominal aorta is non-dilated. LYMPH NODES: Unremarkable. No enlarged lymph nodes. CT/Abdomen/Pelvis WITH Contrast IMPRESSION: Moderate stool in the distal sigmoid colon. There is a small to moderate hiatal hernia. No other acute abnormalities are identified. Electronically Signed: Kyree Rich MD at 22:19 EST ,
== END | disposition home or self-care (01) ==
PROVIDERS: PCP Internal Medicine; Referring Provider Internal Medicine; Visit Provider Internal Medicine
DX: R10.32 Left lower quadrant pain (principal)
CPT/HCPCS: 74177; 80053; 85025; Q9967

== ENCOUNTER → 2022-05-26 | Outpatient (CLI) | payer MEDICARE, OTHER, SELFPAY ==
--- NOTE | 2022-05-26 16:40 | STRESSREP ---
Stress Test Report Exercise myocardial perfusion stress test. 77-year-old man with a history of coronary artery disease Stress protocol: Resting EKG demonstrates normal sinus rhythm with a rate of 74 bpm resting blood pressure is 122/90 mmHg. The patient exercised according to the regular [facility] protocol for a total duration of 8 minutes attaining a maximum heart rate of 144 bpm which was 101% of maximum predicted heart rate; the maximum workload was 10.4 metabolic equivalents. At rest there were no ST or T wave changes noted to suggest ischemia and at peak exercise upsloping ST changes only were noted which did not meet the criteria for ischemia. No clinical angina was noted the test was terminated due to the target heart rate being achieved/fatigue. The peak blood pressure was 170/84 mmHg. Rate-pressure product was 23,000. Myocardial perfusion protocol. 14.8 mCi of technetium 99m sestamibi was injected at rest. The patient exercised according to regular Cam[facility] protocol for total duration of 8 minutes and at peak exercise 44.4 mCi of technetium 99m sestamibi was injected stress images were obtained stress and rest images were reconstructed in comparing the short axis vertical long and horizontal long axis. Gated images were also obtained. Perfusion SPECT analysis: Review of the stress images demonstrate normal uptake of tracer noted in all areas of the myocardium. The resting images similarly demonstrate normal uptake of tracer noted in all areas of the myocardium. No areas of reversibility are noted to suggest ischemia no previous infarct was noted. Gated SPECT analysis: The gated ejection fraction is 51%. Conclusion: Normal exercise myocardial perfusion stress test at a high workload Preserved ejection fraction.
== END | disposition home or self-care (01) ==
LOC: CVS 05:54
PROVIDERS: PCP Internal Medicine; Referring Provider Internal Medicine Cardiovascular Disease; Visit Provider Internal Medicine Cardiovascular Disease
DX: I25.10 Atherosclerotic heart disease of native coronary artery without angina pectoris (principal); Z95.5 Presence of coronary angioplasty implant and graft; E78.00 Pure hypercholesterolemia, unspecified; I10 Essential (primary) hypertension
CPT/HCPCS: 78452; 93017; A9500; A4216

== ENCOUNTER 2022-05-29 05:56 | Day surgery (SDC) | payer MEDICARE, OTHER, SELFPAY ==
[2022-05-29] VITALS (7 sets, daily range): BP systolic 94–133; BP diastolic 58–64; PULSE 69–79; RESP 16–18; TEMP 36.6–37.1; O2SAT 94–98; BMI 27.9
--- NOTE | 2022-05-29 06:12 | PCM.HP.BLA ---
History and Physical Date of Admission: 05/29/22 Visit Reasons:?Diarrhea Chief Complaint: cscope Dishwasher Busser Required: No Is patient in pain?: Yes (left side abdomen) Allergies atorvastatin Adverse Reaction (Verified 05/18/22 14:44) myalgiasPenicillins Adverse Reaction (Verified 05/18/22 14:44) Rash Medications aspirin 81 mg tablet,delayed release 81 mg PO DAILY 08/21/16 [History Confirmed 05/18/22] clopidogrel 75 mg tablet 75 mg PO DAILY 08/21/16 [History Confirmed 05/18/22] ramipril 5 mg capsule 5 mg PO DAILY 08/21/16 [History Confirmed 05/18/22] daily defense 1 cap PO DAILY 06/19/19 [History Confirmed 05/18/22] folic acid 0.8 mg capsule 0.8 mg PO DAILY 01/23/20 [History Confirmed 05/18/22] rosuvastatin 5 mg tablet 5 mg PO DAILY 01/23/20 [History Confirmed 05/18/22] atenolol 25 mg tablet 25 mg PO DAILY 05/11/22 [History Confirmed 05/18/22] cholecalciferol (vitamin D3) 125 mcg (5,000 unit) capsule 5,000 unit PO Q OTHER DAY 05/11/22 [History Confirmed 05/18/22] famotidine 10 mg tablet 10 mg PO DAILY 05/11/22 [History Confirmed 05/18/22] levothyroxine 100 mcg tablet (Synthroid) 50 mcg PO DAILY 05/11/22 [History Confirmed 05/18/22] omega 2-kfn-qkv-fish oil 1,200 mg (144 mg-216 mg) capsule (Fish Oil) 1 cap PO DAILY 05/11/22 [History Confirmed 05/18/22] coenzyme Q10 100 mg capsule 100 mg PO DAILY 05/12/22 [History Confirmed 05/18/22] PFSH Medical History? Acid reflux Atherosclerotic heart disease of [place] coronary artery without angina pectoris Dysphagia Esophageal dysphagia Essential (primary) hypertension History of rectal cancer Hyperlipidemia Ischemic cardiomyopathy Thyroid disease Surgical History? History of colon resection History of coronary artery stent placement (01/21/02) History of esophageal dilatation History of esophagogastroduodenoscopy (EGD) History of herniorrhaphy History of rectal or anal cancer Hx of colonoscopy Hx of ventral hernia repair Family History? Father CAD (coronary artery disease) Myocardial infarction History of implantable cardioverter-defibrillator (ICD) placement History of permanent cardiac pacemaker placementMother CAD (coronary artery disease)Brother CAD (coronary artery disease) Myocardial infarction Cancer Social History? Smoking Status:? Never smoker alcohol intake:? current alcohol intake frequency: holidays/special occasions only details:? occasionally substance use type:? does not use caffeine:? Yes what type of physical activity do you participate in:? walking frequency:? 3-4 times per week HPI HPI HPI: 76-year-old gentleman is being referred by Dr. Vera Moreno for surgical consultation regarding diarrhea and abdominal cramping and bloating.? There has been report of loose and mucoid stools.? A written copy of my surgical consult recommendations will be returned to her.? The patient did take some Imodium with some improvement.? Apparently this lasted several days and then resolved.? He claims he had a previous episode a couple months prior.? He has a history of partial colectomy in 2003 for colon cancer.? It is of note that on June 11, 2020 I assisted him with a esophagogastroduodenoscopy combined with a colonoscopy.? The upper endoscopy showed a moderate-sized hiatal hernia and a Schatzki ring.? This was dilated to 20 mm.? Mild reflux esophagitis identified.? The colonoscopy showed a 4 mm polyp in the proximal ascending colon and a 6 mm polyp in the transverse colon and multiple diverticula in the sigmoid and descending colon.? There was evidence of a prior end-to-end colocolonic anastomosis in the mid rectum.? I have personally reviewed that study and the images obtained.? There are photographs of the rectal anastomosis and of the cecum and ileocecal valve and small polyp in the ascending colon and small polyp in the transverse colon.? The ascending colon polyp was a tubular adenoma in the proximal transverse colon polyp so colonic epithelium and fragment of fecal material.? This area had been removed with a cold snare. As of April 24, 2022 white blood cell count was 8.7 with a hemoglobin 13 hematocrit of 38.4 and platelet count of 280,000.? BUN is 14 and creatinine 1.4.? Liver function tests were normal. In addition to his other medications he is on 81 mg aspirin and 75 mg clopidogrel and famotidine 10 mg all daily.? In addition he is on omega-3 fish oil.? He takes chronic levothyroxine. On April 30, 2022 at the [facility] he had a CT scan of the abdomen pelvis with intravenous contrast but no oral contrast.? This demonstrated moderate stool in the distal sigmoid colon.? Small to moderate hiatal hernia.? No other acute abnormalities.? I have personally reviewed these images.? Moderately large hiatal hernia noted perhaps a thickening of the rugae of the stomach.? The small bowel appeared to be normal.? The rectal anastomosis appears to be patent but there is significant amount of fecal retention just proximal to that in the sigmoid colon.? That part of the colon appeared to be significantly dilated but the remainder of the descending transverse and ascending colon although stool-filled appeared to be of normal caliber. The patient states that he will eat particularly spicy things and then feel a vibration and some discomfort in the left mid abdomen.? He might defecate a small amount but still have pressure and then later on be able to release a large amount of stool.? He denies any bright red blood per rectum or melena.? No mucus.? He has not had any unexpected weight loss.? He states that the symptoms have been ongoing for at least 3 months. ROS General General: No weight change, appetite, fatigue, colon cancer, breast cancer or weakness HEENT HEENT: No difficulty swallowing, eye injury, eye surgery, swollen glands or hoarseness Endo Endocrine: No thyroid disease, diabetes mellitus, thyroid cancer, Hair loss, heat intolerance or cold intolerance Skin Skin: No rash or changing moles Breast Breast: No left breast lump, right breast lump, nipple discharge, breast pain, abnormal mammogram, abnormal US or breast enlargement Musc Musculoskeletal: No back problems, arthritis, rheumatoid arthritis, gout or joint pain Cardio Cardiovascular: No murmur, pacemaker, heart disease, atrial fibrillation, high blood pressure, heart attack, heart stent, palpitations, shortness of breat with exertion or chest pain Psych Psychiatric: No depression, anxiety or hearing voices Resp Respiratory: No shortness of breath, No sleep apnea, No cough, No COPD, No asthma, No emphysema and No wheezing Gastro Gastrointestinal: No abdominal pain, No nausea or vomiting, No diarrhea, No constipation, No blood in stool, No acid reflux, No hemorrhoids, No ulcers, No gallbladder problem and No black,tarry stools Erwin Hematologic: No blood thinners, No blood disorders, No bleeding, No anemia and No blood clots Neuro Neurologic: No system reviewed and no additional complaints, except as documented, No as per HPI, No abnormal gait, No abnormal hearing, No abnormal movements, No abnormal speech, No behavioral changes, No burning sensations, No confusion, No convulsions, No disequilibrium, No dizziness, No localized weakness, No frequent falls, No headache(s), No lack of coordination, No loss of vision, No memory loss, No numbness, No other visual disturbances, No radicular pain, No restless legs, No sensory deficit, No syncope, No tingling, No tremor(s), No weakness and No other Exam Const General: cooperative, healthy appearing, comfortable and no acute distress [facility] Head: normal to inspection Eyes General: appearance normal, both eyes and all related structures Neck Neck: normal visual inspection Chest Chest palpation & inspection: normal inspection of the chest Resp Effort & Inspection: normal respiratory effort Auscultation: clear to auscultation bilaterally Cardio Rate: regular rate Rhythm: regular rhythm GI Inspection: normal to inspection Palpation: soft and no hepatosplenomegaly Auscultation: normal bowel sounds Other: No focal mass or tenderness Musc Cervical Spine: normal cervical lordosis Skin General: no rashes or lesions noted Neuro General: patient alert, patient awake and patient oriented x3 Extrem General: no calf tenderness Psych Appearance: grossly normal Assessment and Plan Assessment and Plan (1) Diarrhea: ?Plan: Based upon the patient's description and the CT imaging I think he is having intermittent bowel motility problem with relative impaction of the very distal sigmoid colon followed by bouts of relief.? Although his previous endoscopy demonstrated widely patent anastomosis and at least on CT imaging to my view it appears to be patent I do believe that a colonoscopy is pertinent.? It may simply be a motility issue.? I have recommended to him a dairy daily MiraLAX or similar product to try to better and more completely evacuate that distal sigmoid in hopes that this vibratory sensation left lower quadrant pain abates as it sounds like he is intermittently obstructing and then releasing and impaction. The patient however states that he just saw Dr. Wilfred Coronel last week the patient has a coronary stent and a stress test is to be scheduled.? We will try to contact that office to see when that schedule is to see if we can expedite that so that we can move on with the patient's colonoscopy. The patient is on clopidogrel but I should not need to hold that for the procedure.? I do anticipate monitored anesthesia care. He has had an opportunity to ask and have questions answered and he is agreeable to us expediting his management.? I very much appreciate the kind opportunity of assisting with the surgical care. Copy: Dr. Vera Moreno and Dr. Wilfred Gary M.D., F.A.C.S. I have examined the patient and the H&P has been reviewed. There are no clinical changes since date of exam. Wilmer Gary M.D., F.A.C.S.
[2022-05-29] MEDS: Lactated Ringers 1,000 ML 15 ML IV (06:31)
--- NOTE | 2022-05-29 07:00 | COLBX_PTH ---
PATIENT: ALVAREZ GUTIERREZ LOC: EN U#:[id number] AGE/SX: 77/M ROOM: RE05/29/[address]: Dr. Wilmer Gary MD : 1945 BED: DIS: 05/29/2022 SPEC #: [id number] RECD: 05/29/22 10:51 STATUS: JOVANI RETrinh #: [id number] RADHA: 05/29/22 07:[address]: Wilmer Gary DEPT: SURGICAL PATHOLOGY RECD BY: Sabine Hoskins ENTERED: 05/29/22 11:42 SP TYPE: COLON BX OTHR DR: Dr. Vera Moreno, DO Tissues: COLON BIOPSY Procedures: Trichrome (control) Special Stain Group II Surgery Specimen Level IV HEADER OPERATION: Colonoscopy (MAC), biopsy PRE-OP DIAGNOSIS: Diarrhea TISSUE SUBMITTED: Random colonic biopsy MICROSCOPIC DIAGNOSIS Colon, random biopsy: No pathologic change. See comment. AM:joshua 06/01/2022 COMMENT Trichrome stain with matched control was used in the evaluation of this case. MICROSCOPIC DESCRIPTION Slides are reviewed. GROSS DESCRIPTION Received in fixative is one container labeled with the patient's name and designated random colonic biopsy. The specimen consists of multiple irregular fragments of light landrum soft tissue that in aggregate measure 1.5 x 1.0 x 0.1 cm. The specimen is totally submitted in one cassette. / SJ:joshua 05/29/2022 TC:5 CPT: 43467
--- NOTE | 2022-05-29 07:18 | OP.CCLET_ITS ---
05/29/2022 [place] Moreno Re : Colonoscopy procedure for Raul Moreno This procedure was performed on Sunday, May 29, 2022. My impressions and recommendations are as follows: Impressions : - Non-thrombosed external hemorrhoids, non-thrombosed internal hemorrhoids and internal hemorrhoids (Grade I) found on digital rectal exam. - Patent end-to-end colo-colonic anastomosis, characterized by healthy appearing mucosa. - The examination was otherwise normal. - Biopsies were taken with a cold forceps from the entire colon for evaluation of microscopic colitis. Recommendations : - Discharge patient to home. - Resume previous diet. - Continue present medications. - Repeat colonoscopy is not recommended due to current age (66 years or older) for screening purposes. - Telephone my office for pathology results in 1 week. My findings are described in the full procedure note, which is enclosed. If I can be of further assistance, please feel free to contact me at Doctor phone number(s): Work: . Sincerely, Wilmer Gary MD 05/29/2022 7:18:24 AM This report has been signed electronically.
--- NOTE | 2022-05-29 07:18 | OP.COLON_ITS ---
Patient Name: Raul Tran Procedure Date: 05/29/2022 7:00 AM Date of : 1945 Age: 77 Procedure: Colonoscopy Indications: Clinically significant diarrhea of unexplained origin Providers: Wilmer Gary MD Referring MD: Wilmer Gary MD Medicines: See the Anesthesia note for documentation of the administered medications Patient Profile: Last Colonoscopy: within the past 3 years. Complications: No immediate complications. Procedure: Pre-Anesthesia Assessment: - Prior to the procedure, a History and Physical was performed, and patient medications and allergies were reviewed. The patient's tolerance of previous anesthesia was also reviewed. The risks and benefits of the procedure and the sedation options and risks were discussed with the patient. All questions were answered, and informed consent was obtained. Prior Anticoagulants: The patient has taken Plavix (clopidogrel), last dose was 2 days prior to procedure. ASA Grade Assessment: III - A patient with severe systemic disease. After reviewing the risks and benefits, the patient was deemed in satisfactory condition to undergo the procedure. After I obtained informed consent, the scope was passed under direct vision. Throughout the procedure, the patient's blood pressure, pulse, and oxygen saturations were monitored continuously. The Colonoscope was introduced through the anus and advanced to the cecum, identified by appendiceal orifice and ileocecal valve. The colonoscopy was performed without difficulty. The patient tolerated the procedure well. The quality of the bowel preparation was good. The ileocecal valve and the appendiceal orifice were photographed. Scope In: 7:02:40 AM Scope Withdrawal Time 0 hours 6 minutes 57 seconds Scope Out: 7:12:49 AM Total Procedure Duration Time 0 hours 10 minutes 9 seconds Findings: The digital rectal exam findings include non-thrombosed external hemorrhoids, non-thrombosed internal hemorrhoids and internal hemorrhoids (Grade I). There was evidence of a prior end-to-end colo-colonic anastomosis in the distal sigmoid colon. This was patent and was characterized by healthy appearing mucosa. The exam was otherwise without abnormality. Biopsies for histology were taken with a cold forceps from the entire colon for evaluation of microscopic colitis. Impression: - Non-thrombosed external hemorrhoids, non-thrombosed internal hemorrhoids and internal hemorrhoids (Grade I) found on digital rectal exam. - Patent end-to-end colo-colonic anastomosis, characterized by healthy appearing mucosa. - The examination was otherwise normal. - Biopsies were taken with a cold forceps from the entire colon for evaluation of microscopic colitis. Recommendation: - Discharge patient to home. - Resume previous diet. - Continue present medications. - Repeat colonoscopy is not recommended due to current age (66 years or older) for screening purposes. - Telephone my office for pathology results in 1 week. Procedure Code(s): --- Professional --- 71785, Colonoscopy, flexible; with biopsy, single or multiple Diagnosis Code(s): --- Professional --- K64.0, First degree hemorrhoids K64.4, Residual hemorrhoidal skin tags Z98.0, Intestinal bypass and anastomosis status R19.7, Diarrhea, unspecified CPT copyright 2017 [employer]. All rights reserved. The codes documented in this report are preliminary and upon twisting press operator review may be revised to meet current compliance requirements. Wilmer Gary MD 05/29/2022 7:18:24 AM This report has been signed electronically. Number of Addenda: 0 Note Initiated On: 05/29/2022 7:00 AM
== END 2022-05-29 08:25 | disposition home or self-care (01) ==
LOC: EN 05:59 → AC 06:00
PROVIDERS: PCP Internal Medicine; Referring Provider Internal Medicine; Visit Provider Surgery
PROC: 0DJD8ZZ Inspection of Lower Intestinal Tract, Via Natural or Artificial Opening Endoscopic (ICD-10-PCS; CPT 45378; principal; 2022-05-29 06:55)
DX: R19.7 Diarrhea, unspecified (principal); Z95.5 Presence of coronary angioplasty implant and graft; K64.0 First degree hemorrhoids; R14.0 Abdominal distension (gaseous); K64.4 Residual hemorrhoidal skin tags; Z98.0 Intestinal bypass and anastomosis status; Z79.82 Long term (current) use of aspirin; I25.10 Atherosclerotic heart disease of native coronary artery without angina pectoris; I10 Essential (primary) hypertension; E78.5 Hyperlipidemia, unspecified; K21.9 Gastro-esophageal reflux disease without esophagitis
CPT/HCPCS: 45380; 88305; 88313; J7120; J2405

== ENCOUNTER 2022-10-02 07:25 | Day surgery (SDC) | payer MEDICARE, OTHER, SELFPAY ==
[2022-10-02] VITALS (7 sets, daily range): BP systolic 112–153; BP diastolic 66–87; PULSE 61–74; RESP 16–18; TEMP 36.3–36.9; O2SAT 95–100; BMI 27.1
[2022-10-02] MEDS: Lactated Ringers 1,000 ML 15 ML IV (07:53)
--- NOTE | 2022-10-02 08:05 | HP.PCM_ITS ---
History and Physical Date of Admission: 10/02/22 Medications aspirin 81 mg tablet,delayed release 81 mg PO DAILY 08/21/16 [History Confirmed 05/29/22] clopidogrel 75 mg tablet 75 mg PO DAILY 08/21/16 [History Confirmed 05/29/22] ramipril 5 mg capsule 5 mg PO DAILY 08/21/16 [History Confirmed 05/29/22] daily defense 1 cap PO DAILY 06/19/19 [History Confirmed 05/29/22] folic acid 0.8 mg capsule 0.8 mg PO DAILY 01/23/20 [History Confirmed 05/29/22] rosuvastatin 5 mg tablet 5 mg PO DAILY 01/23/20 [History Confirmed 05/29/22] atenolol 25 mg tablet 25 mg PO DAILY 05/11/22 [History Confirmed 05/29/22] cholecalciferol (vitamin D3) 125 mcg (5,000 unit) capsule 5,000 unit PO Q OTHER DAY 05/11/22 [History Confirmed 05/29/22] famotidine 10 mg tablet 10 mg PO DAILY 05/11/22 [History Confirmed 05/29/22] levothyroxine 100 mcg tablet (Synthroid) 50 mcg PO DAILY 05/11/22 [History Confirmed 05/29/22] omega 5-ajc-bsi-fish oil 1,200 mg (144 mg-216 mg) capsule (Fish Oil) 1 cap PO DAILY 05/11/22 [History Confirmed 05/29/22] coenzyme Q10 100 mg capsule 100 mg PO DAILY 05/12/22 [History Confirmed 05/29/22] ascorbic acid (vitamin C) 1,000 mg tablet,extended release (Vitamin C ER) 1,000 mg PO DAILY 05/25/22 [History Confirmed 05/29/22] [facility] Medical History Acid reflux Atherosclerotic heart disease of [place] coronary artery without angina pectoris Cardiology follow-up encounter Dysphagia Esophageal dysphagia Essential (primary) hypertension Excessive bleeding Gastric reflux High cholesterol History of echocardiogram History of rectal cancer History of stress test Hyperlipidemia Ischemic cardiomyopathy Non-smoker Thyroid disease Thyroid disease Wears glasses Surgical History History of colon resection History of coronary artery stent placement (01/21/02) History of esophageal dilatation History of esophagogastroduodenoscopy (EGD) History of esophagogastroduodenoscopy (EGD) History of herniorrhaphy History of rectal or anal cancer Hx of colonoscopy Hx of ventral hernia repair Family History Father CAD (coronary artery disease) Myocardial infarction History of implantable cardioverter-defibrillator (ICD) placement History of permanent cardiac pacemaker placementMother CAD (coronary artery disease)Brother CAD (coronary artery disease) Myocardial infarction Cancer Social History Smoking Status: Never smoker alcohol intake: current alcohol intake frequency: holidays/special occasions only details: occasionally substance use type: does not use caffeine: Yes what type of physical activity do you participate in: walking frequency: 3-4 times per week HPI HPI HPI: 77-year-old gentleman who is being referred by Dr. Vera Moreno for surgical consultation regarding esophageal dysphagia and a written copy of my surgical consult recommendations will return to her. The patient is complaining of recurrent difficulty with swallowing. This is a substernal location. Thicker foods and harder foods become stuck. I have most recently assisted him May 29, 2022 with a colonoscopy. Evidence of a prior end-to-end distal sigmoid anastomosis that was healthy. Hemorrhoids were noted. No acute findings. Random biopsies for microcytic colitis were negative. Additionally previously on June 11, 2020 I performed a esophagogastroduodenoscopy for the patient for esophageal dysphagia. Mild reflux esophagitis noted. Medium sized hiatal hernia noted. Moderate Schatzki ring at the EG junction that was dilated with hydrostatic pressure to 20 mm. There was improvement in the narrowing with mi nimal blood loss. H. pylori was negative. There mild duodenitis and mild gastritis and mild reflux esophagitis without Mathew's. His most recent imaging was April 30, [address] scan moderate stool in the distal sigmoid. There is a small to moderate hiatal hernia. I have personally reviewed those images. And on my review I would consider at least a moderate- sized hiatal hernia. Among the patient's other medications he is on low-dose aspirin and clopidogrel and 10 mg of famotidine daily and omega-3 fish oil. The patient states that over the past couple months he has had increasing problems with food getting stuck. He feels like he gets an air block and burps and cannot get it to move. He tries to chew his food thoroughly. This is identical to the problems that he was having 2 years ago which seem to be resolved with the esophagogastroduodenoscopy with dilatation to 20 mm. Fortunately food particles not gotten completely stuck. He has not any weight loss. Otherwise feels like his health is steady. ROS General General: Yes colon cancer; No weight change, appetite, fatigue, breast cancer or weakness HEENT HEENT: Yes difficulty swallowing; No eye injury, eye surgery, swollen glands or hoarseness Endo Endocrine: Yes thyroid disease; No diabetes mellitus, thyroid cancer, Hair loss, heat intolerance or cold intolerance Skin Skin: No rash or changing moles Breast Breast: No left breast lump, right breast lump, nipple discharge, breast pain, abnormal mammogram, abnormal US or breast enlargement Musc Musculoskeletal: No back problems, arthritis, rheumatoid arthritis, gout or joint pain Cardio Cardiovascular: Yes high blood pressure, heart attack and heart stent; No murmur, pacemaker, heart disease, atrial fibrillation, palpitations, shortness of breat with exertion or chest pain Psych Psychiatric: No depression, anxiety or hearing voices Resp Respiratory: No shortness of breath, No sleep apnea, No cough, No COPD, No asthma, No emphysema and No wheezing Gastro Gastrointestinal: No abdominal pain, No nausea or vomiting, No diarrhea, No constipation, No blood in stool, No acid reflux, No hemorrhoids, No ulcers, No gallbladder problem and No black,tarry stools Erwin Hematologic: No blood thinners, No blood disorders, No bleeding, No anemia and No blood clots Neuro Neurologic: No system reviewed and no additional complaints, except as documented, No as per HPI, No abnormal gait, No abnormal hearing, No abnormal movements, No abnormal speech, No behavioral changes, No burning sensations, No confusion, No convulsions, No disequilibrium, No dizziness, No localized weakness, No frequent falls, No headache(s), No lack of coordination, No loss of vision, No memory loss, No numbness, No other visual disturbances, No radicular pain, No restless legs, No sensory deficit, No syncope, No tingling, No tremor(s), No weakness and No other Exam Const General: cooperative, healthy appearing, comfortable and no acute distress [facility] Head: normal to inspection Eyes General: appearance normal, both eyes and all related structures Neck Neck: normal visual inspection Chest Chest palpation & inspection: normal inspection of the chest Resp Effort & Inspection: normal respiratory effort Auscultation: clear to auscultation bilaterally Cardio Rate: regular rate Rhythm: regular rhythm GI Inspection: normal to inspection Palpation: soft and no hepatosplenomegaly Musc Cervical Spine: normal cervical lordosis Skin General: no rashes or lesions noted Neuro General: patient alert, patient awake and patient oriented x3 Extrem General: no calf tenderness Psych Appearance: grossly normal Assessment and Plan Assessment and Plan (1) Dysphagia: Qualifiers: Dysphagia type: esophageal phase Qualified Code(s): R13.19 - Other dysphagia Plan: I recommended the patient a esophagogastroduodenoscopy with possible biopsy or polypectomy or esophageal dilatation if indicated. Previously we were able to dilate him to 20m m. He has had an opportunity to ask and have questions answered. We will schedule and try to expedite his care. I appreciate the ongoing opportunity of assisting with the surgical care Copy: Dr. Vera Gary M.D., F.A.C.S I have examined the patient and the H&P has been reviewed. There are no clinical changes since date of exam. Wilmer Gary M.D., F.A.C.S.
--- NOTE | 2022-10-02 08:30 | IMM_PTH ---
PATIENT: ALVAREZ GUTIERREZ LOC: EN U#:[id number] AGE/SX: 77/M ROOM: RE10/02/[address]: Dr. Wilmer Gary MD : 1945 BED: DIS: 10/02/2022 SPEC #: [id number] RECD: 10/05/22 14:06 STATUS: JOVANI REQ #: [id number] RADHA: 10/02/22 08:[address]: Wilmer Gary DEPT: IMMUNOHISTOCHEMISTRY RECD BY: Patti Bennett ENTERED: 10/05/22 14:07 SP TYPE: IMMUNO OTHR DR: Dr. Vera Moreno DO Tissues: A - Stomach, NOS Procedures: H Pylori (initial) PHYSICIAN & INSTITUTION [place] [id number] SPECIMEN INFORMATION: Tissue Source: A - Antrum biopsy Clinical Info: Dysphagia Specimen Number: [id number] CPT code: 22345 METHODOLOGY: Deparaffinized sections of prefer/formalin-fixed tissue or PAP/DQ stained slides are incubated with monoclonal/polyclonal antibodies/oligonucleotide probes. Localization is made via biotin free immunoperoxidase method. Appropriate controls are performed and reacted as expected. Results on target cell population are indicated in the following table: RESULTS: ANTIBODY / CLONE RESULT Block A H Pylori (polyclonal) negative These tests were developed and their performance characteristics determined by [facility]. They may not have been cleared or approved by the U.S. Food and Drug Administration. The FDA has determined that such clearance or approval is not necessary. The above immunohistochemical/dualISH markers are ordered and reviewed by the Pathologist. INTERPRETATION: A. Antrum, biopsy: Negative for Helicobacter pylori organisms. AM:joshua 10/06/2022
--- NOTE | 2022-10-02 08:30 | EGD_PTH ---
PATIENT: ALVAREZ GUTIERREZ LOC: EN U#:[id number] AGE/SX: 77/M ROOM: RE10/02/[address]: Dr. Wilmer Gary MD : 1945 BED: DIS: 10/02/2022 SPEC #: [id number] RECD: 10/02/22 14:24 STATUS: JOVANI REI #: [id number] RADHA: 10/02/22 08:[address]: Wilmer Gary DEPT: SURGICAL PATHOLOGY RECD BY: Imani Palma ENTERED: 10/05/22 08:50 SP TYPE: EGD BIOPSY OTHR DR: Dr. Vera Moreno DO Tissues: A - Gastric mucous membrane B - Gastric fundus C - Gastric mucous membrane Procedures: Special Stain Group II Surgery Specimen Level IV Alcian Blue/PAS (control) HEADER OPERATION[place] [place] and biopsies PRE-OP DIAGNOSIS: Dysphagia TISSUE SUBMITTED: A - Antrum biopsy for H. pylori and path, B - Fundic polyp biopsy, C - Gastroesophageal junction biopsy MICROSCOPIC DIAGNOSIS A. Gastric antrum, biopsy: Mild chronic inflammation. See comment. B. Fundic polyp, biopsy: Consistent with fundic gland polyp. Mild chronic inflammation. C. Gastroesophageal junction, biopsy: Mild chronic inflammation. No evidence of goblet cell metaplasia. See comment. AM:joshua 10/06/2022 COMMENT A. The results of immunohistochemistry for Helicobacter pylori will be reported separately ([id number]). C. Alcian blue/PAS stain with matched control supports the above diagnosis. MICROSCOPIC DESCRIPTION Slides are reviewed. GROSS DESCRIPTION A - Received in fixative is one container labeled with the patient's name and designated antrum biopsy. The specimen consists of multiple irregular fragments of light landrum soft tissue that in aggregate measure 0.4 x 0.3 x 0.1 cm. The specimen is totally submitted in one cassette. B - Received in fixative is one container labeled with the patient's name and designated fundic polyp biopsy. The specimen consists of two irregular fragments of light landrum soft tissue that in aggregate measure 0.5 x 0.3 x 0.1 cm. The specimen is totally submitted in one cassette. C - Received in fixative is one container labeled with the patient's name and designated GE junction. The specimen consists of multiple irregular fragments of light landrum soft tissue that in aggregate measure 0.5 x 0.5 x 0.1 cm. The specimen is totally submitted in one cassette. / SJ:rg 10/05/2022 TC:3 CPT: 35330 x3, 77955
--- NOTE | 2022-10-02 09:19 | OP.CCLET_ITS ---
10/02/2022 Vera Moreno Re : Upper GI endoscopy procedure for Raul Moreno This procedure was performed on Sunday, October 02, 2022. My impressions and recommendations are as follows: Impressions : - LA Grade A reflux esophagitis. Biopsied. - Medium-sized hiatal hernia. - Erythematous mucosa in the antrum. Biopsied. - A few gastric polyps. Resected and retrieved. - Normal examined duodenum. - Mild Schatzki ring. Dilated. Recommendations : - Discharge patient to home. - Resume previous diet. - Continue present medications. - Return to my office in 2 weeks. Patient has a moderate hiatal hernia. This may be contributing to his esophageal dysphagia. Schatzki ring is not dramatic. Need to discuss with him pathology report and whether he would want to go through with any additional advanced testing for consideration of possible laparoscopic repair of his hiatal hernia with a reflux procedure. My findings are described in the full procedure note, which is enclosed. If I can be of further assistance, please feel free to contact me at Doctor phone number(s): Work: . Sincerely, Wilmer Gary MD 10/02/2022 9:19:01 AM This report has been signed electronically.
--- NOTE | 2022-10-02 09:19 | OP.EGD_ITS ---
Patient Name: Raul Tran Procedure Date: 10/02/2022 8:51 AM Date of : 1945 Age: 77 Procedure: Upper GI endoscopy Indications: Dysphagia Providers: Wilmer Gary MD Medicines: See the Anesthesia note for documentation of the administered medications Complications: No immediate complications. Procedure: Pre-Anesthesia Assessment: - Prior to the procedure, a History and Physical was performed, and patient medications and allergies were reviewed. The patient's tolerance of previous anesthesia was also reviewed. The risks and benefits of the procedure and the sedation options and risks were discussed with the patient. All questions were answered, and informed consent was obtained. Prior Anticoagulants: The patient has taken aspirin, last dose was 2 days prior to procedure. ASA Grade Assessment: II - A patient with mild systemic disease. After reviewing the risks and benefits, the patient was deemed in satisfactory condition to undergo the procedure. After obtaining informed consent, the endoscope was passed under direct vision. Throughout the procedure, the patient's blood pressure, pulse, and oxygen saturations were monitored continuously. The Endoscope was introduced through the mouth, and advanced to the second part of duodenum. The upper GI endoscopy was accomplished without difficulty. The patient tolerated the procedure well. Scope In: 8:59:50 AM Scope Out: 9:10:45 AM Total Procedure Duration Time 0 hours 10 minutes 55 seconds Findings: LA Grade A (one or more mucosal breaks less than 5 mm, not extending between tops of 2 mucosal folds) esophagitis with no bleeding was found 43 cm from the incisors. Biopsies were taken with a cold forceps for histology. A medium-sized hiatal hernia was present. Diffuse mildly erythematous mucosa without bleeding was found in the gastric antrum. Biopsies were taken with a cold forceps for histology. A few sessile polyps with no bleeding and no stigmata of recent bleeding were found in the gastric fundus. The polyp was removed with a cold biopsy forceps. Resection and retrieval were complete. The examined duodenum was normal. A mild Schatzki ring was found at the gastroesophageal junction. A TTS dilator was passed through the scope. Dilation with an 18-19-20 mm balloon dilator was performed to 20 mm. The dilation site was examined following endoscope reinsertion and showed mild improvement in luminal narrowing. Estimated blood loss was minimal. Impression: - LA Grade A reflux esophagitis. Biopsied. - Medium-sized hiatal hernia. - Erythematous mucosa in the antrum. Biopsied. - A few gastric polyps. Resected and retrieved. - Normal examined duodenum. - Mild Schatzki ring. Dilated. Recommendation: - Discharge patient to home. - Resume previous diet. - Continue present medications. - Return to my office in 2 weeks. Patient has a moderate hiatal hernia. This may be contributing to his esophageal dysphagia. Schatzki ring is not dramatic. Need to discuss with him pathology report and whether he would want to go through with any additional advanced testing for consideration of possible laparoscopic repair of his hiatal hernia with a reflux procedure. Procedure Code(s): --- Professional --- 00587, Esophagogastroduodenoscopy, flexible, transoral; with transendoscopic balloon dilation of esophagus (less than 30 mm diameter) 51975, 59, Esophagogastroduodenoscopy, flexible, transoral; with biopsy, single or multiple Diagnosis Code(s): --- Professional --- K21.0, Gastro-esophageal reflux disease with esophagitis K44.9, Diaphragmatic hernia without obstruction or gangrene K31.89, Other diseases of stomach and duodenum K31.7, Polyp of stomach and duodenum K22.2, Esophageal obstruction R13.10, Dysphagia, unspecified CPT copyright 2017 [employer]. All rights reserved. The codes documented in this report are preliminary and upon history faculty member review may be revised to meet current compliance requirements. Wilmer Gary MD 10/02/2022 9:19:01 AM This report has been signed electronically. Number of Addenda: 0 Note Initiated On: 10/02/2022 8:51 AM
== END 2022-10-02 10:13 | disposition home or self-care (01) ==
LOC: EN 07:25 → AC 07:25
PROVIDERS: PCP Internal Medicine; Referring Provider Internal Medicine; Visit Provider Surgery
PROC: 0DJ08ZZ Inspection of Upper Intestinal Tract, Via Natural or Artificial Opening Endoscopic (ICD-10-PCS; CPT 43235; principal; 2022-10-02 08:25)
DX: K44.9 Diaphragmatic hernia without obstruction or gangrene (principal); I25.5 Ischemic cardiomyopathy; I10 Essential (primary) hypertension; K31.7 Polyp of stomach and duodenum; K29.70 Gastritis, unspecified, without bleeding; R13.10 Dysphagia, unspecified; K21.00 Gastro-esophageal reflux disease with esophagitis, without bleeding; E78.00 Pure hypercholesterolemia, unspecified; I25.10 Atherosclerotic heart disease of native coronary artery without angina pectoris; K29.80 Duodenitis without bleeding; K64.9 Unspecified hemorrhoids; K22.2 Esophageal obstruction
CPT/HCPCS: 43254; 43249; 43239; 88305; 88313; 88342; J7120; J2405

== ENCOUNTER → 2023-02-03 | Outpatient (CLI) | payer MEDICARE, OTHER, SELFPAY | END | disposition home or self-care (01) | LOC: PSN 12:45 | PROVIDERS: PCP Internal Medicine; Referring Provider Internal Medicine; Visit Provider Internal Medicine | DX: I49.3 Ventricular premature depolarization (principal) | CPT/HCPCS: 93225; 93226 ==

== ENCOUNTER → 2023-02-26 | Outpatient (CLI) | payer MEDICARE, OTHER, SELFPAY ==
--- NOTE | 2023-02-26 12:49 | ECHOD_ITS ---
Reason For Study: VENTRICULAR PREMATURE DEPOLARIZATION Procedure This was a 2D Doppler, Color Flow transthoracic echocardiogram. Exam performed in department. Left Ventricle Normal LV size. The estimated ejection fraction is 55 %. No evidence for diastolic dysfunction. No regional wall motion abnormalities noted. Right Ventricle Normal RV size. Normal systolic function. Atria Normal left atrium. Normal right atrium. No doppler evidence for ASD. Mitral Valve There is no mitral valve stenosis. Trivial mitral valve insufficiency. Tricuspid Valve There is no tricuspid stenosis. Trivial tricuspid valve insufficiency. Pulmonary artery systolic pressure is 25-30 mmHg. Aortic Valve Trisinus/trileaflet aortic valve. There is no aortic stenosis. Trivial aortic valve insufficiency. Pulmonic Valve There is no pulmonic valvular stenosis. Trivial pulmonic valve insufficiency. Great Vessels Normal aortic root. Pericardium/Pleural No pericardial effusion. MMode/2D Measurements & Calculations RVDd: 3.3 cm Ao root diam: 3.3 cm LAV(MOD-bp): 49.9 ml LAV(MOD-bp) Indexed: 23.5 ml/m2 LAV(MOD-sp2): 49.5 ml LAV(MOD-sp4): 42.9 ml SV(MOD-sp4): 82.3 ml SV(sp4-el): 85.7 ml LVAd ap4: 40.9 cm2 LVLd ap4: 9.0 cm EDV(MOD-sp4): 151.3 ml EDV(sp4-el): 156.8 ml LVAs ap4: 25.2 cm2 LVLs ap4: 7.6 cm ESV(MOD-sp4): 69.0 ml ESV(sp4-el): 71.1 ml EF(MOD-sp4): 54.4 % EF(sp4-el): 54.7 % LA A4 area: 17.7 cm2 LA dimension(2D): 3.3 cm RA A4 area: 16.1 cm2 Time Measurements MV dec time: 0.25 sec Doppler Measurements & Calculations MV E max davidson: 56.0 cm/sec Lat Peak E' Davidson: 10.1 cm/sec Med Peak E' Davidson: 7.2 cm/sec MV A max davidson: 83.4 cm/sec E/E' lat: 5.5 E/E' med: 7.8 MV E/A: 0.67 Ao V2 max: 113.8 cm/sec AI max davidson: 403.5 cm/sec LV V1 max: 80.8 cm/sec Ao max P.2 mmHg AI max P.1 mmHg LV V1 max P.6 mmHg AI dec slope: 261.9 cm/sec2 AI P1/2t: 451.3 msec PA V2 max: 113.9 cm/sec PI end-d davidson: 73.1 cm/sec TR max davidson: 228.8 cm/sec TR max P.9 mmHg ECHO/Echo Complete Interpretation Summary The estimated ejection fraction is 55 %. No evidence for diastolic dysfunction. Trivial mitral valve insufficiency. Trivial aortic valve insufficiency. Ordering Physician: Vera Moreno Referring Physician: Vera Moreno Performed By: Deborah Rogel RDCS
== END | disposition home or self-care (01) ==
LOC: CVS 12:48
PROVIDERS: PCP Internal Medicine; Referring Provider Internal Medicine; Visit Provider Internal Medicine
DX: I49.3 Ventricular premature depolarization (principal)
CPT/HCPCS: 93306

== ENCOUNTER → 2023-03-16 | Outpatient (CLI) | payer MEDICARE, OTHER, SELFPAY ==
[2023-03-16 10:39] LABS: Bacteria 0 SEEN /hpf (None Seen); Mucous, Urine 0 SEEN /hpf (<or=2+); Red Blood Cells-Urine 0 SEEN /hpf (0-5); Squamous Epithelial Cells - UA 0 SEEN /hpf (0-5); White Blood Cells 0 SEEN /hpf (0-5)
--- NOTE | 2023-03-16 10:43 | RAD_ITS ---
STUDY: X-RAY CHEST REASON FOR EXAM: Male, 77 years old. Preoperative evaluation. TECHNIQUE: Frontal and lateral views of the chest. COMPARISON: April 06, 2017 FINDINGS: Stable mild hyperinflation. There is no demonstrated pleural abnormality. Borderline cardiomegaly unchanged. Normal mediastinum and cinthia. Normal visualized pulmonary arteries. Aortic tortuosity with calcification unchanged. Stable mild diffuse thoracic spondylosis with increased kyphosis. Normal visualized ribs, clavicles, and shoulders. No abnormality of the visualized soft tissue structures of the upper abdomen. RAD/Chest PA and Lateral IMPRESSION: Stable chest with no acute or active cardiopulmonary disease. Electronically Signed: Carlos Villanueva MD at 13:52 EST ,
[2023-03-16 11:22] LABS: Hematocrit 40.1 % (40-54); Hemoglobin 13.4 g/dL (13.0-16.5); Mean Corp Hgb Conc 33.4 g/dL (32-36); Mean Corpuscular Hgb 32.8 pg (27.0-32.0); Mean Platelet Vol. 9.4 fl (6.2-12.0); Platelet Count 333 K/mm3 (150-450); RBC Distribution Width SD 43.2 fl (35.1-43.9); Red Blood Count 4.09 M/mm3 (4.6-6.2); White Blood Count 14.2 K/mm3 (4.4-11.0)
[2023-03-16 11:40] LABS: Prothrombin Time (Protime)PT. 12.7 SECONDS (11.7-14.9)
[2023-03-16 11:47] LABS: Color, Urine Yellow (Yellow); Glucose, Dipstick Normal (Normal); Ketone-Dipstick Negative (Negative); Leukocyte Esterase-Dipstick Negative /ul (Negative); Nitrite-Dipstick Negative (Negative); Occult Blood-Urine 10 /ul (Negative); Protein-Dipstick Negative (Negative); Urine Bilirubin Dipstick Negative (Negative); Urine Clarity Clear (Clear); Urine Urobilinogen Normal (Normal)
[2023-03-16 11:56] LABS: Anion Gap 7 (5-15); BUN 15 mg/dL (7-18); Calcium,Total 9.4 mg/dL (8.5-10.1); Chloride 104 mmol/L (98-107); Creatinine, Serum 1.36 mg/dL (0.70-1.30); EST Glomerular Filtration Rate 54 mL/min (>60); Est Glom Filt Rate - Afr Amer 65 mL/min (>60); Glucose 99 mg/dL (74-106); Potassium 4.2 mmol/L (3.5-5.1); Sodium Level 139 mmol/L (136-145)
== END | disposition home or self-care (01) ==
LOC: LAB 10:29
PROVIDERS: PCP Internal Medicine; Referring Provider Physician Assistant Medical; Visit Provider Physician Assistant Medical
DX: I44.1 Atrioventricular block, second degree (principal); E78.00 Pure hypercholesterolemia, unspecified; I25.10 Atherosclerotic heart disease of native coronary artery without angina pectoris
CPT/HCPCS: 36415; 71046; 80048; 81001; 85027; 85610

== ENCOUNTER 2023-04-05 15:48 | Observation (INO) | payer MEDICARE, OTHER, SELFPAY ==
[2023-04-02 08:10] VITALS: BMI 27.8
[2023-04-05 15:30] VITALS: BP 135/64; PULSE 71; RESP 16; TEMP 36.6; O2SAT 100
[2023-04-05] MEDS: 0.9% Saline Lock 10 ML Syringe IV (21:25)
[2023-04-05] MEDS: Rosuvastatin Calcium 5 MG Tablet PO (21:26)
[2023-04-05 21:30] VITALS: BP 145/72; PULSE 77; RESP 18; TEMP 36.8; O2SAT 97
[2023-04-06 03:55] VITALS: BP 141/84; PULSE 73; RESP 16; TEMP 36.4; O2SAT 97
[2023-04-06] MEDS: Levothyroxine 50 MCG Tablet PO (05:02)
--- NOTE | 2023-04-06 05:55 | RAD_ITS ---
EXAM: XR CHEST, 3 VIEWS CLINICAL INDICATION: Post permanant ICD/Pacemaker -- inspiration/expiration. Arms Down. Wet read to MD TECHNIQUE: Frontal, lateral and one additional view of the chest. COMPARISON: 03/16/2023. FINDINGS: LUNGS AND PLEURAL SPACES: Unremarkable. No consolidation or edema. No pneumothorax. No effusion. HEART: Unremarkable. Cardiac silhouette not enlarged. MEDIASTINUM: Central airways and mediastinal contour are unremarkable. BONES/JOINTS: Unremarkable. No acute fracture. SOFT TISSUES: Unremarkable. TUBES, LINES AND DEVICES: Pacemaker leads in good position. RAD/Chest 3 View IMPRESSION: 1. Pacemaker leads in good position. 2. No acute cardiopulmonary abnormality. 3. No pneumothorax. Electronically Signed: Armin Burns MD at 5:29 EST ,
[2023-04-06 08:00] VITALS: BP 149/74; PULSE 75; RESP 17; TEMP 36.8; O2SAT 97
[2023-04-06 08:32] VITALS: O2SAT 97
--- NOTE | 2023-04-06 09:32 | PCM.PN.CARD ---
Subjective Subjective Patient seen and evaluated. Appears to be doing well today status post pacemaker placement. Objective Data Vital Signs: Vital Signs Temp Pulse Resp BP Pulse Ox O2 Del Method 98.3 F 75 17 149/74 H 97 Room Air 04/06/23 08:00 04/06/23 08:00 04/06/23 08:00 04/06/23 08:00 04/06/23 08:32 04/06/23 08:32 Oxygen Delivery Method Room Air Weight: 205 lb Body Mass Index (BMI) 27.8 Intake & Output: Intake and Output for Last 24 Hours 04/04/23 04/05/23 04/06/23 23:59 23:59 23:59 Intake Total 300 / 300 Output Total 1050 / 1050 Balance -750 / -750 Cardiology Labs/Tests Rhythm: EKG: ECHO: Stress Test: Cardiac Cath: PCI: CT Surgery: Holter monitor: EPS: PPM: CXR: Chest CT Scan: Radiography Diagnostic Testing: Radiology Impression Chest X-Ray 04/06/23 05:55 IMPRESSION: 1. Pacemaker leads in good position. 2. No acute cardiopulmonary abnormality. 3. No pneumothorax. Electronically Signed: Armin Burns MD at 5:29 EST , Physical Exam Const alert, oriented x3 and no apparent distress General Appearance: cooperative HEENT hearing grossly normal bilaterally Head and Scalp: atraumatic Eyes EOMs intact bilaterally Neck General: normal visual inspection Chest inspection of chest normal and palpation of chest normal Resp normal respiratory effort Auscultation: clear to auscultation bilaterally Cardio regular rate, regular rhythm, S1 normal heart sound and S2 normal heart sound Jugular Venous Distention: JVD GI normal to inspection, nondistended, normoactive bowel sounds Extremity normal capillary refill and no pedal edema Peripheral Pulses: Yes pulses 2+ throughout and femoral pulses present Skin no rashes or lesions noted Neuro oriented x3 and CN's II-XII intact bilaterally Psych Appearance: grossly normal and appropriate Assessment & Plan Assessment/Plan (1) Mobitz type 2 second degree atrioventricular block: PLAN: Patient is status post permanent pacemaker implantation. Chest x-ray demonstrates pacer in good position. Pacemaker check demonstrates good numbers. Will follow-up as outpatient.
--- NOTE | 2023-04-06 09:34 | DCINST_ITS ---
Discharge Instructions Diet Discharge Diet: No restrictions (as you feel able. No excessive stretching. No lifting your arm over your head (keep elbow below shoulder level) until seen for your pacemaker check. Do not lift your elbow away from your side until you are seen for your first visit. Keep the arm sling on if it helps remind you not to lift your arm.) Activity Discharge Activity: May Not Drive May shower in (days): 2 Additional Activity Instructions:: May shower or bathe on [day 3]. Do not scrub the incision or soak in the tub. Just wash with soap and let the water run over the incision. Gently pat dry with towel. Medications: Take your pain medication as directed. Refer to your discharge instruction sheet for a list of medications you are to take. Dressing / Incision Call your doctor if your incision/area has: Continuous Slow Oozing, Sudden Increased Bleeding, Increased Pain/ Swelling, Increased Redness, Foul Smelling Discharge and Swelling at the incision site Call your doctor if you observe: Fever of 101 or Higher, Shortness of breath, Dizziness, Fainting spells, Swelling in the ankles, Chest pain, Prolonged hiccupping and Increased palpitations (irregular heartbeat) Suture Line Care: Avoid Pulling/Pushing and Avoid Pinching/Bending Cleanse incision/area with: Keep Dressing Clean & Dry Additional Dressing/Incision Instructions:: When dressing is removed, wash and dry incision. Keep covered with a light bandage if it is rubbing against your clothing. Do not cover the incision with an airtight bandage. Change the bandage daily. Do not remove steri strips. The strips will fall off on their own. Follow Up Care Please Follow Up With: Wilfred Coronel MD When: Pacer follow-up on April 12 at 1 PM Test Results: Test results from this visit will be discussed in further detail at your follow- up appointment, if applicable. Discharge Plan Admission Admit Date/Time: 04/05/23 15:48 Attending Provider: Wilfred Coronel Primary Care Provider: Vera Moreno Discharge Orders/Prescriptions Prescriptions: No Action daily defense 1 cap PO DAILY rosuvastatin 5 mg tablet 5 mg PO DAILY folic acid 0.8 mg capsule 0.8 mg PO DAILY levothyroxine [Synthroid] 100 mcg tablet 50 mcg PO DAILY omega 1-yvu-ipb-fish oil [Fish Oil] 1,200 (144-216) mg capsule 1 cap PO DAILY coenzyme Q10 100 mg capsule 100 mg PO DAILY famotidine 20 mg tablet 20 mg PO DAILY polyethylene glycol 3350 [Miralax] 17 gram/dose powder 4 g PO DAILY clopidogrel 75 MG tablet 75 mg PO DAILY Rx Instructions: will stop 5 days prior aspirin 81 MG tablet,delayed release (DR/EC) 81 mg PO DAILY ramipril 5 MG capsule 5 mg PO DAILY atenolol 25 mg tablet 25 mg PO DAILY cholecalciferol (vitamin D3) 125 mcg (5,000 unit) capsule 5,000 unit PO Q OTHER DAY Vitamin C 1,000 mg Tablet Extended Release 1,000 mg PO DAILY Referrals / Follow Up: Fast,Vera, DO [Primary Care Provider] - Disposition Disposition (needs filled in before D/C Order can be placed): Home, Self Care
[2023-04-06] MEDS: Atenolol 25 MG Tablet PO ×2 (09:43→09:44)
[2023-04-06] MEDS: Aspirin E.C. 81 MG Tablet PO (09:44)
[2023-04-06] MEDS: Ramipril 5 MG Capsule PO (09:45)
[2023-04-06 09:47] VITALS: BP 133/80; PULSE 85; RESP 16; TEMP 36.7; O2SAT 97
--- NOTE | 2023-04-06 10:45 | CASEMGMT ---
Patient has order for discharge. RN CM in to discuss needs at discharge. Patient denies needs or help at discharge. Patient denies any questions or concerns.
--- NOTE | 2023-04-08 07:55 | CL.IE_ITS ---
Patient: ALVAREZ GUTIERREZ Study Date: 04/05/2023 Performing: Wilfred Coronel MD : 1945 Age: 77 Gender: male PROCEDURES PERFORMED LP04-([id number])INITIAL PACER INSERT+DUAL LEADS INDICATIONS Mobitz (type II) AV block PROCEDURE DETAILS The patient was brought to the Catheterization Lab in the postabsorptive nonsedated state. Informed consent was obtained prior to the procedure. Local anesthetic was given subcutaneously to the left subclavian region with Lidocaine 2%. Incision was made to the left subclavicular area. A peel-away sheath was inserted into the left subclavian vein 9 FR. PPM ventricular lead was inserted / positioned to right ventricular apex. PPM ventricular lead testing performed. PPM ventricular lead testing performed. The sheath was then removed. A peel-away sheath was inserted into the left subclavian vein 7 FR. PPM atrial lead was inserted / positioned to the right atrial appendage. The sheath was then removed. The wire was then removed. PPM atrial lead testing performed. The Ventricular PM lead sutured in place with 2-0 Silk. The Atrial lead sutured in place with 2-0 Silk. Device pocket was irrigated with antibiotic. PPM generator was attached to the lead(s) and inserted into the pocket. Subcutaneous closure was completed with 3-0 Vicryl. Skin closure was completed with 4-0 Vicryl. Steri-strips applied to left subclavicular incision. Instrument, sponge, and needle counts were noted to be normal. The patient tolerated the procedure well. Estimated Blood Loss: 10 ml's IMPLANTED / EX-PLANTED DEVICES IMPLANTED DEVICE(S): PPM Atrial lead - Political [employer] Faculty Member: [employer], Model # TENDRILL STS , Serial # [id number] PPM Ventricular lead - Political [employer] Faculty Member: [employer], Model # TENDRIL STS , Serial # [id number] PPM Generator - Political Science Faculty Member: [employer], Model # ASSURITY MRI , Serial # [id number] DEVICE PARAMETERS ATRIAL LEAD PARAMETERS: P wave- 4.9 (mV) threshold- 0.6 (V) impedence- 509 (OHMS) VENTRICULAR LEAD PARAMETERS: R wave- 5.8 (mV) threshold- 1.1 (V) impedence- 1106 (OHMS) 10V test, no diaphragmatic capture DEVICE PARAMETERS: Mode- DDD Lower rate- 60 Upper rate- 120 CONCLUSIONS / RECOMMENDATIONS Device Conclusions: Successful implantation of a dual chamber pacemaker Device Recommendations: Follow up with Primary Care Physician PROCEDURE MEDICATIONS Fentanyl 50 mcg IV Versed 1 mg IV Versed 1 mg IV Fentanyl 25 mcg IV Oxygen: 2 L/min via nasal cannula Antibiotic given in appropriate timeframe. Clindamycin 900 mg IV 04/05/2023 09:22:40 Tylenol 650 mg PO 04/05/2023 13:41:26 Signed By Wilfred Coronel MD On 04/08/2023 07:54:11 Wilfred Coronel MD
== END 2023-04-06 09:34 | disposition home or self-care (01) ==
LOC: CLSP 16:13 → PCU 16:13
PROVIDERS: Admitting Provider Internal Medicine Cardiovascular Disease; PCP Internal Medicine; Referring Provider Internal Medicine Cardiovascular Disease; Visit Provider Internal Medicine Cardiovascular Disease
DX: Z45.018 Encounter for adjustment and management of other part of cardiac pacemaker (principal); I44.1 Atrioventricular block, second degree; I25.10 Atherosclerotic heart disease of native coronary artery without angina pectoris; Z79.899 Other long term (current) drug therapy; Z79.82 Long term (current) use of aspirin; Z79.02 Long term (current) use of antithrombotics/antiplatelets; Z79.890 Hormone replacement therapy; K21.9 Gastro-esophageal reflux disease without esophagitis; E78.00 Pure hypercholesterolemia, unspecified; I10 Essential (primary) hypertension; E07.9 Disorder of thyroid, unspecified; Z95.5 Presence of coronary angioplasty implant and graft
CPT/HCPCS: 33208; 71047; 93005; 99221; J7040; J7050; A4216; C1894; G0378

== ENCOUNTER → 2025-03-02 | Outpatient (CLI) | payer MEDICARE, OTHER, SELFPAY ==
[2025-03-02 10:44] LABS: Mucous, Urine 0 SEEN /hpf (<or=2+); Red Blood Cells-Urine 0 SEEN /hpf (0-5); Squamous Epithelial Cells - UA 0 SEEN /hpf (0-5)
[2025-03-02 12:18] LABS: Color, Urine Yellow (Yellow); Glucose, Dipstick Normal (Normal); Hematocrit 38.6 % (40-54); Hemoglobin 13.1 g/dL (13.0-16.5); Immature Granulocytes Count 0.040 X10^3/uL (0.0-0.0); Ketone-Dipstick Negative (Negative); Leukocyte Esterase-Dipstick Negative /ul (Negative); Mean Corp Hgb Conc 33.9 g/dL (32-36); Mean Corpuscular Volume 97.2 fL (80-94); Mean Platelet Vol. 10.0 fl (6.2-12.0); NRBC Flagged by Analyzer 0 % (0-5); Nitrite-Dipstick Negative (Negative); Occult Blood-Urine Negative /ul (Negative); Platelet Count 282 K/mm3 (150-450); Protein-Dipstick 15 mg/dl (Negative); RBC Distribution Width CV 11.9 % (11.6-14.6); RBC Distribution Width SD 43.3 fl (35.1-43.9); Red Blood Count 3.97 M/mm3 (4.6-6.2); Specific Gravity, Urine 1.020 (1.002-1.030); Urine Bilirubin Dipstick Negative (Negative); White Blood Count 7.2 K/mm3 (4.4-11.0)
[2025-03-02 12:43] LABS: Creatinine, Urine (random) 172.00 mg/dL (39.00-259.00); Microalbumin,Random Urine < 12.0 mg/L (<20 mg/L)
[2025-03-02 13:01] LABS: AST(SGOT) 27 U/L (<=37); Alanine Aminotransfer ALT/SGPT 18 U/L (<=46); Albumin, Serum 4.5 g/dL (3.4-4.8); Alkaline Phosphatase 51 U/L (40-129); Anion Gap 10 (5-15); BUN 16 mg/dL (4-19); BUN/Creat Ratio 12.9 RATIO (10-20); Calcium,Total 9.8 mg/dL (7.6-11.0); Carbon Dioxide 27.1 mmol/L (21.0-32.0); Chloride 103 mmol/L (98-108); Cholesterol 135 mg/dL (<=200); Globulin 2.9 g/dL (2.2-4.2); Glucose 108 mg/dL (70-99); Low Density Lipoprotein Calc. 74 mg/dL; Potassium 4.5 mmol/L (3.3-5.1); Triglycerides 89 mg/dL; Very Low Density Lipoprotein 18 mg/dL (5-40); Vitamin D,25 Hydroxy 53.7 ng/mL (30-100); cholesterol:hdl ratio screen 3.10
== END | disposition home or self-care (01) ==
LOC: CIMLAB 10:42
PROVIDERS: PCP Internal Medicine; Referring Provider Internal Medicine; Visit Provider Internal Medicine
DX: E78.00 Pure hypercholesterolemia, unspecified (principal); E03.9 Hypothyroidism, unspecified; R73.01 Impaired fasting glucose; E55.9 Vitamin D deficiency, unspecified; I10 Essential (primary) hypertension
CPT/HCPCS: 36415; 80053; 80061; 81001; 82043; 82306; 82570; 83036; 84443; 85025